=== PATIENT | female | born 1965 | race Caucasian/White ===

== ENCOUNTER 2025-11-04 12:43 | Outpatient (CLI) | payer OTHER, SELFPAY ==
--- OUTSIDE RECORDS SUMMARY | 2025-09-05 15:30 | XMS_ITS | Encounter Summary ---
Author Organization [facility] [address] [place] [address] Care Team Providers Care General Accounting Clerk Name Role Phone None, Physician Primary Care Provider Unavailabl e Reason for Visit * Reason Comments Urinary Symptoms Urinary frequency, p ain in lower back started 1.5 days ago Encounter Details Date Type Department Care Team (Latest Contact Info) Description 09/05/2025 4:30 PM EDT Office Visit [address] [place] [address] Glendy Curran, TRUCK PACKER [address] [facility] [address] [facility] [place] [address] Leukocytes in urine (Primary Dx); Urinary frequency Social History Tobacco Use Types Packs/Day Years Used Date Smoking Tobacco: Never Smokeless Tobacco: Never Tobacco Cessation:Counseling Given: Not Answered Alcohol Use Standard Drinks/Week Comments No 0 (1 standard drink = 0.6 oz pur e alcohol) Comments No Sex and Gender Information Value Date Recorded Sex Assigned at Not on file Legal Sex Female 4:20 PM EST Gender Identity Not on file Sexual Orientation Not on file Occupation Industry Job Start Date Job End Date Teacher Not on file Not on file Not on file documented as of this encounter Last Filed Vital Signs Vital Sign Reading Time Taken Comments Blood Pressure 114/62 09/05/2025 4:37 PM EDT Pulse 74 09/05/2025 4:37 PM EDT Temperature 36.8 C (98.3 F) 09/05/2025 4:37 PM EDT Respiratory Rate 20 09/05/2025 4:37 PM EDT Oxygen Saturation 97% 09/05/2025 4:37 PM EDT Inhaled Oxygen Concentration - - Weight 81.8 kg (180 lb 5.4 oz) 09/05/2025 4:37 P M EDT Height 172.7 cm (5' 8 ) 09/05/2025 4:37 PM EDT Body Mass Index 27.42 09/05/2025 4:37 PM EDT documented in this encounter Functional Status * Are You Deaf or do You Have Serious Difficulty Hearing? Answer Date of Assessment Author No 07/12/2018 6:21 AM EDT Khris Ma RN * Patient's Vision Adequate to Safely Complete Daily Activities Answer Date of Assessment Author Yes 07/12/2018 6:21 AM EDKhris Kolb RN * Do You Have Serious Difficulty Walking or Climbing Stairs? Answer Date of Assessment Author Yes 07/12/2018 6:21 AM Khris Rolon RN * Do You Have Difficulty Dressing or Bathing? Answer Date of Assessment Author No 07/12/2018 6:21 AM Khris Rolon RN * Because of a Physical, Mental, or Emotional Condition, Do You Have Serious Difficulty Concentrating, Remembering or Making a Decision? Answer Date of Assessment Author No 07/12/2018 6:21 AM Khris Rolon RN documented as of this encounter Mental Status * Because of a Physical, Mental or Emotional Problem, Do You Have Difficulty Doing Errands Alone Suchas Visiting a Doctor's Office or Shopping? Answer Entry Date Author Yes 07/12/2018 6:21 AM Khris Rolon RN documented in this encounter Patient Instructions * Patient Instructions* Glendy Curran APRN - 09/05/2025 4:59 PM EDT Treating patient today with macrobid, take like prescribed. Will contact urine culture. Follow up with PCP. ER if symptoms worsen documented in this encounter Progress Notes * Glendy Curran APRN - 09/05/2025 4:59 PM EDT Patient Identification: Name: Naila Patel Age: 60 yr/o Gender: female : 1965 PCP: None, Physician Chief Complaint: Naila Patel is presenting today for Urinary Symptoms (Urinary frequency, pain in lower back started 1.5 days ago) . History of Present Illness: Patient presents today with symptoms that started roughly 2 days ago. She is having frequency, urgency, pressure of the bladder, sensation that she has not emptied her bladder and low back pain. No fevers. Not taking any medications to treat. Also does not have any burning at this time. History, Medications, Allergies, and Review of Symptoms: Past Medical History: Past Medical History[1] Past Surgical History: Past Surgical History[2] Current Medications: Outpatient Medications as of 09/05/2025 Medication Sig Dispense Refill albuterol HFA (PROVENTIL HFA) 108 (90 Base) MCG/ACT inhaler Inhale 2 puffs into the lungs every 4 (four) hours as needed for Wheezing or Shortness of Air. 6.7 g 0 budesonide-formoterol (SYMBICORT) 160-4.5 MCG/ACT inhaler Inhale 2 puffs into the lungs 2 (two) times daily. (Patient not taking: Reported on 09/05/2025) 1 each 3 esomeprazole (NEXIUM) 40 MG capsule Take 1 capsule by mouth every morning before breakfast. 90 capsule 3 ferrous sulfate 325 (65 FE) MG tablet Take 1 tablet by mouth daily. 30 tablet 2 Allergies: Allergies as of 09/05/2025 Review status set to Review Complete by Glendy Curran APRN on 09/05/2025 No Known Allergies Family Medical History: History - Family[3] Social History: Social History[4] E-cigarette/Vaping Use: Never User Review of Symptoms: Review of Systems Genitourinary: Positive for decreased urine volume, frequency and urgency. Negative for dysuria. Physical Exam: BP 114/62 (BP Location: Left arm, Orthostatic Position: Sitting, Amb BP Cuff Size: 11 - Adult) Pulse 74 Temp 98.3 ??F (36.8 ??C) (Oral) Resp 20 Ht 5' 8 (1.727 m) Wt 180 lb 5.4 oz (81.8 kg) LMP 09/30/2013 SpO2 97% BMI 27.42 kg/m?? Physical Exam Vitals and nursing note reviewed. Constitutional: General: She is not in acute distress. Appearance: Normal appearance. She is not ill-appearing, toxic-appearing or diaphoretic. Cardiovascular: Rate and Rhythm: Normal rate and regular rhythm. Pulmonary: Effort: Pulmonary effort is normal. Abdominal: Tenderness: There is no right CVA tenderness or left CVA tenderness. Neurological: Mental Status: She is alert. Psychiatric: Mood and Affect: Mood normal. Behavior: Behavior normal. Thought Content: Thought content normal. Judgment: Judgment normal. Assessment/Plan: Diagnoses and orders/medications from this encounter 1. Leukocytes in urine nitrofurantoin, macrocrystal-monohydrate, (MACROBID) 100 MG capsule Culture,Urine 2. Urinary frequency POCT Urinalysis W/O Micro nitrofurantoin, macrocrystal-monohydrate, (MACROBID) 100 MG capsule Culture,Urine Encounter Medications Signed Prescriptions Disp Refills nitrofurantoin, macrocrystal-monohydrate, (MACROBID) 100 MG capsule 14 capsule 0 Sig: Take 1 capsule by mouth 2 (two) times daily for 7 days. Results this visit (if any) Results for orders placed or performed in visit on 09/05/25 POCT Urinalysis W/O Micro Result Value Ref Range Color, UA Yellow Appearance-BF Clear Clear, Slightly Cloudy Spec Grav, UA 1.015 1.000 - 1.030 pH-Urine Dipstick 5 5 - 8 Leukocyte Esterase-UA 25 Sagrario/ul (A) Negative Nitrite-Urine Negative Negative PROTEIN-POCT Negative Negative, Trace GLUCOSE-POCT Normal Normal KETONES-POCT Negative Negative Urobilinogen-UA Normal Normal mg/dL BILIRUBIN-POCT Negative Negative Blood-POCT 50 Ze/uL (A) Negative QC Urine Strip Acceptable Acceptable Lot Number Urine Strip [id number] Exp Date Urine Strip [id number] Comment Urine Strip Follow-up (if any) No follow-ups on file. Medical Decision Making Treating patient today with macrobid, take like prescribed. Will contact urine culture. Follow up with PCP. ER if symptoms worsen [1] Past Medical History: Diagnosis Date Asthma Eczema no problem at present GERD (gastroesophageal reflux disease) Metastatic colon cancer in female Nov 2018 last chemo PONV (postoperative nausea and vomiting) Poor venous access [2] Past Surgical History: Procedure Laterality Date COLON SURGERY 04/17/2018 COLON RESECTION and liver biopsy for colon cancer COLONOSCOPY N/A 09/30/2024 Re-scope 5 years-Dr. Gibbons HIATAL HERNIA REPAIR TONSILLECTOMY [3] Family History Problem Relation Name Age of Onset Lung cancer Mother smoker Liver cancer Father 70 cholangiocarcinoma Colon cancer Paternal Grandfather 70 [4] Social History Tobacco Use Smoking status: Never Smokeless tobacco: Never Vaping Use Vaping status: Never Used Substance Use Topics Alcohol use: No Drug use: No documented in this encounter Plan of Treatment Upcoming Encounters Date Type Department Care Team (Late st Contact Info) Description 12/25/2025 11:00 AM EST [facility] Visit [facility] [address] [facility] [address] [place] [address] Alyssa Bullard MD [address] [facility] [address] [place] [address] 01/05/2026 2:45 PM EST Lab Visit [facility] [address] [place] [address] 01/05/2026 3:00 PM EST Office Visit [facility] [address] [place] [address] Jennifer Hadley MD [address] [address] 09/11/2026 1:30 PM EDT Office Visit [facility] [address] [facility] [address] [place] [address] Hallie Fiore APRN [address] [facility] [address] [place] [address] documented as of this encounter Procedures Procedure Name Priority Date/Time Associated Diagnosis Comments CULTURE, URINE Routine 09/05/2025 5:49 PM EDT Urinary frequency Leukocytes in urine POCT URINALYSIS W/O MICRO Routine 09/05/2025 4:47 PM EDT Urinary frequency documented in this encounter Results * (ABNORMAL) Culture,Urine (09/05/2025 5:49 PM EDT) Culture 10,000 to 50,000 CFU/mL Viridans Streptococcus group(A) LAB DEVICE: [facility] 09/07/2025 12:14 PM EDT [facility] Comment: Lactobacillus, most corynebacteria, and viridans streptococci are extremely rare causes of urinary tract infection. Their presence in urine specimens typically indicates mucosal contamination. If symptoms persist and organism is isolated from repeated cultures, contact Microbiology for further workup. Colonization of the urinary tract without infection is common. Treatment is discouraged unless the patient is symptomatic, , or undergoing an invasive urologic procedure. Urine MID-STREAM URINE SPECIMEN / Unknown Non-blood Collection / Unknown 09/05/2025 5:49 PM EDT 09/05/2025 5:49 PM EDT us Glendy Curran APRN MICROBIOLOGY - GENERAL ORD ERABLES Final Result [facility] [address] [facility] [address] [place] [address] * (ABNORMAL) POCT Urinalysis W/O Micro (09/05/2025 4:47 PM EDT) Color, UA Yellow [facility] ICC/HAND PACKAGER Appearance-BF Clear Clear, Slightly Cloudy [facility] ICC/HAND PACKAGER Spec Grav, UA 1.015 1.000 - 1.030 [facility] ICC/HAND PACKAGER pH-Urine Dipstick 5 5 - 8 [facility] ICC/HAND PACKAGER Leukocyte Esterase-UA 25 Sagrario/ul(A) Negative [facility] ICC/HAND PACKAGER Nitrite-Urine Negative Negative [facility] ICC/HAND PACKAGER PROTEIN-POCT Negative Negative, Trace [facility] ICC/HAND PACKAGER GLUCOSE-POCT Normal Normal [facility] [place] ICC/HAND PACKAGER KETONES-POCT Negative Negative [facility] ICC/HAND PACKAGER Urobilinogen- UA Normal Normal mg/dL [facility] ICC/HAND PACKAGER BILIRUBIN-POC T Negative Negative [facility] ICC/HAND PACKAGER Blood-POCT 50 Ze/uL(A) Negative [facility] ICC/HAND PACKAGER QC Urine Strip Acceptable Acceptable [facility] ICC/HAND PACKAGER Lot Number Urine Strip [id number] [facility] ICC/HAND PACKAGER Exp Date Urine Strip [id number] [facility] ICC/HAND PACKAGER Comment Urine Strip [facility] ICC/HAND PACKAGER Urine MID-STREAM URINE SPECIMEN / Unknown 09/05/2025 4:47 PM EDT us Glendy Curran TRUCK PACKER POINT OF CARE TEST ORDERAB LES Final Result [facility] ICC/HAND PACKAGER [address] [place] [id number] documented in this encounter Visit Diagnoses Diagnosis Leukocytes in urine- Primary Other nonspecific finding on examination of urine Urinary frequency documented in this encounter Care Teams General Accounting Clerk Relationship Specialty Start Date End Date None, Physician PCP - General 09/04/19 09/07/25 documented as of this encounter
--- OUTSIDE RECORDS SUMMARY | 2025-09-08 12:30 | XMS_ITS | Encounter Summary ---
Author Organization [address] [address] Care Team Providers Care [employer] Name Role Phone Hallie Fiore APRN Primary Care Provider [phone] Reason for Referral * Mammography (Routine) - Authorized Specialty Diagnoses / Procedures Referred By Contac t Referred To Contact Radiology Diagnoses Encounter for screening mammogram for breast cancer Procedures Mammogram Mann Screening Bilateral Hallie Fiore APRN [address] [address] Phone: tel: fax: [address] [address] Phone: tel: Referral ID Status Reason Start Date Expiration Date V isits Requested Visits Authorized [id number] Authorized 09/08/2025 10/09/2026 1 1 * Consultation (Routine) - Authorized Specialty Diagnoses / Procedures Referred By Contac t Referred To Contact Gynecology Diagnoses Encounter for screening for cervical cancer Hallie Fiore APRN [address] [address] Phone: tel: fax: Referral ID Status Reason Start Date Expiration Date V isits Requested Visits Authorized [id number] Authorized 09/08/2025 10/09/2026 1 1 Scheduling Instructions Please call [phone] Option 3 if you have any questions or scheduling needs. Reason for Visit * Reason Comments New Patient Establish Care Encounter Details Date Type Department Care Team (Doug st Contact Info) Description 09/08/2025 1:30 PM EDT Office Visit [facility] [address] [address] Hallie Fiore APRN [address] [address] Annual physical exam (Primary Dx); Screening for endocrine, nutritional, metabolic and immunity disorder; Encounter for screening for diseases of the blood and blood-forming organs and certain disorders involving the immune mechanism; Screening for depression; Encounter for screening examination for other mental health and behavioral disorders; Personal history of colon cancer; UTI symptoms; Hematuria, unspecified type; Encounter for screening for cervical cancer; Encounter for screening mammogram for breast cancer Social History Tobacco Use Types Packs/Day Years [...] Sign Reading Time Taken Comments Blood Pressure 110/66 09/08/2025 1:20 PM EDT Pulse 56 09/08/2025 1:20 PM EDT Temperature 36.7 C (98.1 F) 09/08/2025 1:20 PM EDT Respiratory Rate - - Oxygen Saturation 100% 09/08/2025 1:20 PM EDT Inhaled Oxygen Concentration - - Weight 80.7 kg (177 lb 14.6 oz) 09/08/2025 1:20 PM EDT Height 172.7 cm (5' 8 ) 09/08/2025 1:20 PM EDT Body Mass Index 27.05 09/08/2025 1:20 PM EDT documented in this encounter Functional Status * Over the past 2 weeks, how often have you been bothered by any of the following problems? (0 = Not at all; 1 = Several days; 2 = More than half the days; 3 = Nearly every day) Question Answer Date of Assessment Author Little interest or pleasure in doing things Not at all 09/08/2025 1:00 PM CECIT Hallie Fiore APRN Feeling down, depressed, or hopeless Not at all 09/08/2025 1:00 PM EDT Hallie Fiore APRN Depression Risk 0 09/08/2025 1:00 PM EDT Hallie Booker APRN * Over the past 2 weeks, how often have you been bothered by any of the following problems? Question Answer Date of Assessment Author Trouble falling or staying asleep, or sleeping too much Nearly every day 09/08/2025 1:00 PM CECIT Hallie Fiore APRN Feeling tired or having little energy Nearly every day 09/08/2025 1:00 PM Hallie Akbar APRN Poor appetite or overeating Not at all 09/08/2025 1:00 PM CECIT Hallie Fiore APRN Feeling bad about yourself - or that you are a failure or have let yourself or your family down Not at all 09/08/2025 1:00 PM CECIT Hallie Fiore APRN Trouble concentrating on things, such as reading the newspaper or watching television Not at all 09/08/2025 1:00 PM CECIT Hallie Fiore APRN Moving or speaking so slowly that other people could have noticed? Or the opposite - being so fidgety or restless that you have been moving around a lot more than usual. Not at all 09/08/2025 1:00 PM Hallie Akbar APRN Thoughts that you would be better off or hurting yourself in some way Not at all 09/08/2025 1:00 PM CECIT Hallie Fiore APRN Depression Risk Score 6 09/08/2025 1:00 PM Hallie Akabr APRN * Are You Deaf or do You Have Serious Difficulty Hearing? Answer Date of Assessment Author No 07/12/2018 6:21 AM Khris Rolon RN * Patient's Vision Adequate to Safely Complete Daily Activities Answer Date of Assessment Author Yes 07/12/2018 6:21 AM Khris Rolon RN * Do You Have Serious Difficulty [...] 07/12/2018 6:21 AM Khris Rolon RN * Over the last 2 weeks, how often have you been bothered by any of the following problems? Question Answer Date of Assessment Author Feeling nervous, anxious, or on edge 0 09/08/2025 1:00 PM Hallie Akbar APRN Not being able to stop or control worrying 0 09/08/2025 1:00 PM Hallie Akbar APRN Worrying too much about different things 1 09/08/2025 1:00 PM Hallie Akbar APRN Trouble relaxing 0 09/08/2025 1:00 PM Hallie Lopez APRN Being so restless that it is hard to sit still 0 09/08/2025 1:00 PM Hallie Akbar APRN Becoming easily annoyed or irritable 1 09/08/2025 1:00 PM Hallie Akbar APRN Feeling afraid as if somethi ng awful might happen 0 09/08/2025 1:00 PM Hallie Akbar APRN LINCOLN-7 Total Score 2 09/08/2025 1:00 PM Hallie Akbar APRN * If you checked off any problems on this questionnaire, Question Answer Date of Assessment Author How difficult have these problems made it for you to do your work, take care of things at home, or get along with other people? Not difficult at all 09/08/2025 1:00 PM EDT FioreHallie koenig SHERIE Ayala documented as of this encounter Mental Status * Because of a Physical, Mental or Emotional Problem, Do You Have Difficulty Doing Errands Alone Suchas Visiting a Doctor's Office or Shopping? Answer Entry Date Author Yes 07/12/2018 6:21 AM EDT Khris Ma RN documented in this encounter Patient Instructions * Patient Instructions* Hallie Fiore SHERIE Ayala - 09/08/2025 6:50 AM EDT Welcome to [facility]. My name is Hallie Fiore, and I will be your new provider here at the [place] [address] office. Any new or ongoing medical problems can be seen by me. Iwould like to see you at least once a year for a checkup if nothing arises throughout the year. I will be here on Mondays, Wednesdays, and Fridays. Please note any medication refills need to be given at least a 48 hours window of return. ATTENTION: If you are on any of the following medications (blood pressure medications, diabetes medications, cholesterol medications, depression / anxiety medications), you must be seen every 3-6 months or as advised at follow up, for ongoing monitoring and further medication refills. It is your responsibility to schedule (and remember) your appointment. Please plan to arrive 15 minutes prior to your appointment time. MyChart Rules: MyChart is a useful part of our patient care, and is a great way for us to communicate lab results,and for you to request refills. Not all medical questions are appropriate to MyChart. New medical issues that require taking a history, performing an exam, getting labs or studies, or researching medical questions need to be addressed in the office. Examples of medical issues that are APPROPRIATE to MyChart: - Follow-up on problems we've already addressed in a visit, like home testing results; - Questions that can be answered with a simple yes or no Communication that is NOT appropriate for [facility]: - [employer] is NOT for new problems, serious problems or urgent problems. [employer] messages are not instantaneous. We will check our messages each weekday. We strive for a 48 hour turn-around on email. Urgent matters should be addressed by phone, in the office, or at the ER. - [facility] is NOT for private issues. Messages are received first by our office staff, and become part of the permanent medical record. We appreciate your respect for the limitations and boundaries of [employer]. The following things you are due for, if you would like to review and discuss at your next visit let me know. Any vaccines you are due for do not require a visit with me, you just need to call ([phone]) and make an immunization only visit. Health Maintenance Due Topic Tdap/Td Vaccine >11 yo (1 - Tdap) Shingles (Shingrix) (1 of 2) Hepatitis B (HepB) Vaccine (1 of 3 - 19+ 3-dose series) Hepatitis A (HepA) Vaccine (1 of 2 - Risk 2-dose series) Cervical Cancer Screening RSV 50+ and (1 - Risk 50-74 years 1-dose series) Breast Cancer Screening Annual [facility] Screening Influenza Vaccine (1) Annual Wellness Plan: - Return to our office in a year to review your health. We need to see you annually to prescribe any medications. If you have other medical problems you may need to be seen sooner. - Alcohol: consider holding Alcohol intake to less than 10 drinks a week. A drink is one 12 oz beer, a 4 oz glass of wine, or 1.5 oz of liquor. Some patients should consider avoiding Alcohol entirely. - Dental checkups every 6-12 months are important. Haiku and floss your teeth at least twice daily. - Exercise regularly for your heart: 150 minutes of moderate exercise like brisk walking, or 75 minutes of vigorous exercise. 30 minutes a day, 5 times a week is an easy goal to remember. You can break this into shorter sessions, like 10 minutes 3 times a day. Also consider weight training a coupleof times a week. - Lose Weight: even 5 pounds weight loss can improve your health. - Nutrition: Eat healthy food, less of it, mostly vegetables . Avoid sweetened drinks and concentrated sugars. Limit white foods like rice, bread and pasta. - Pain medications sold [id number] like ibuprofen (Motrin/Advil) and naproxen (Aleve) should be limited, they can cause bleeding and kidney damage. - Pain & Cold medications sold dpzz-jwc-ismebqy that contain acetaminophen (Tylenol) can cause serious harm if not taken as directed, particulalry to your liver. - Safety Belts used regularly save lives. - Sex: condoms used effectively prevent and sexually transmitted disease. - Screening: Cholesterol screening should begin at age 35 for healthy men, and 45 for healthy women. - Vaccinations: Flu shots annually protect you AND our community. - Vaccinations: Pneumonia shots usually happen at age 65. Smokers, diabetics, and people with heart, lung or immune disease may need them earlier. - Vaccinations: Shingles immunization usually happens at age 50. You may want to check your insurance coverage. - Vaccinations: Tetanus shots are needed every 10 years, and once as an adult you should get a Tetanus shot that boosts Pertussis ( whooping cough ). CANCER SCREENINGS Cancer screening tests are too important to ignore. Delays of just a few months in detecting various forms of cancer can make treatment more difficult and reduce chances of survival. Here's a guide to cancer screening tests and who should get checked when. Breast cancer: Mammogram -- an X-ray of the breast -- is often the most effective way of spotting breast cancer early when treatment can be more than 90% successful. Mammograms expose you to low-doseradiation, and for most people in the following age ranges, the benefits of regular mammograms outweigh the risks of radiation exposure. Women age 45 to 54 and at average risk: Annually, according to the [employer]. Women age 50 to 74 and at average risk: Every two years, according to the U.S. Preventive Services Task Force (USPSTF). Those at high risk of breast cancer because of family history or their own medical history may start screening before age 40 in consultation with their health care provider. Cervical cancer: Pap smears look for precancerous cells that can develop into cancer without treatment. The HPV test looks for the human papillomavirus that can trigger the cells to develop into cancer. Age 25: Pap smears should start at age 25. A normal test may allow you to wait five years for your next test. Age 25 to 65: Talk to your health care provider about what's right for you. A normal Pap smear may allow you to wait three years before another. A normal HPV test may allow you to wait five years forthe next one. If both tests conducted at the same time are normal, you may be able to wait five years to do it again. Over age 65: Your provider may advise that you don't need screening anymore if you've had normal screenings for several years or if you've had your cervix removed as part of hysterectomy, for instance. Colon cancer: Colon cancer typically starts with precancerous polyps in the colon or rectum. Once detected, the polyps can be removed before they turn into cancer. A colonoscopy is very thorough and allows the physician to remove any polyps or other suspicious tissue for testing. Stool tests collected at home can be almost as accurate as a colonoscopy, but don't allow for immediate treatment. Age 45 to 75 and at average risk for colon cancer: People in this age group should get a colonoscopy every 10 years OR a cologaurd if there is no family history of colon cancer. Age 76 to 85: Talk with your health care provider about your overall health and prior screening history. Current evidence shows there is little benefit in screening everyone in this age group. Lung cancer: Low-dose computed tomography (low-dose CT scan) is used to screen for lung cancer. Thetest is quick and painless, but carries risk from low-level radiation exposure. Age 50 to 80 with a 20 pack-year smoking history and a current smoker or quit within the past 15 years (A pack year is measured by multiplying the number of packs smoked each day by the number of years. One pack per day for 20 years would be 20 pack years and two packs per day for 20 years would be40 pack years.) Other: Screening for ovarian, pancreatic, prostate, testicular and thyroid cancers has not been shown be effective at reducing , according to the USPSTF. Bone Density Screening: Begins at age 65. Depending on results, it will guide when repeat scan is completed. If any of these screening apply to you, lets have a discussion about it! Thank you for your visit to our [facility] [address]. It was a pleasure to be a part of your care. documented in this encounter Progress Notes * Hallie Fiore APRN - 09/08/2025 1:30 PM EDT Images from the original note were not included. [facility] [address], [place] [address] Naila Patel is a 60 yr/o female here today for: Chief Complaint Patient presents with New Patient Establish Care HPI: She is seen today alone. Information obtained from patient as historian. Previous PCP: None Treatment Team Members: Patient Care Team: Hallie Fiore APRN as PCP - General (Nurse Practitioner Family) Annual Adult Wellness Visit: Medical History: Past Medical, Surgical and Social Hx, Family Hx, Medications & Allergies were reviewed and updated as appropriate. Care Teams: Care team reviewed and updated in medical record under Care Team. Health Screening: Age-appropriate Screening & Interventions recommended by USPSTF were reviewedwith the patient, and Health Maintenance was updated in [facility]. Medical Problems: For details, see Problem List, Medications, and Orders sections in Epic, and AVS related to this [id number]. LIFESTYLE - Body mass index is 27.05 kg/m??. Diet: poor diet - working 3 jobs - fast food . Exercise/Physical Activity: exercising 3 days/week doing walking. Sleep: has no issues with sleeping and frequent bathroom. Seat belt: Pt does wear a seat belt. SOCIAL: Marital Status: She is . Sexual Activity: patient understands the importance of safe sexual practices. STD Testing: She does not request STD testing. Children: 1 child. 0 son. 1 daughter - Radha Patel 19yo. Work: She works as a teacher at [employer]. Fun: Patient likes to read & watch sports. SUBSTANCE USE - Substance use reviewed with patient, with cessation / treatment recommendations as applicable. She reports that she has never smoked. She has never used smokeless tobacco. She reports that she does not drink alcohol and does not use drugs. Tobacco Use: Social History updated in medical record. Alcohol Use: Social history updated in medical record. MENTAL HEALTH PHQ-9: 05/09 (Score 5 - 9 = Mild depression). LINCOLN-7: 01/03 (Score 0 - 4 = No / minimal anxiety). In the past the patient has been on no Tx. Denies SI / HI. Counseled on available treatment options (medication, therapy) when indicated. HEALTH MAINTENANCE - Health Maintenance reviewed with patient. Health Maintenance Due Topic Date Due Tdap/Td Vaccine >11 yo (1 - Tdap) Never done Shingles (Shingrix) (1 of 2) Never done Hepatitis B (HepB) Vaccine (1 of 3 - 19+ 3-dose series) Never done Hepatitis A (HepA) Vaccine (1 of 2 - Risk 2-dose series) Never done Cervical Cancer Screening Never done RSV 50+ and (1 - Risk 50-74 years 1-dose series) Never done Breast Cancer Screening 09/17/2022 Annual SDOH Screening Never done Most Recent Labs: Lipid Panel No results found for: TRIGLYCDES , CHOL , HDL , LDLCALC , LDLCHOLM Liver Enzymes Lab Results Component Value Date ALT 12 09/26/2022 AST 15 09/26/2022 BILITOTAL 0.5 09/26/2022 Kidney Function Lab Results Component Value Date CREATININE 0.87 09/26/2022 EGFR >60 09/26/2022 A1C No results found for: [id number] TSH Lab Results Component Value Date TSH 1.560 03/04/2019 FREET4 0.87 03/04/2019 CBC Lab Results Component Value Date HGB 12.1 09/26/2022 HGB 11.4 (L) 03/28/2022 HGB 12.1 09/27/2021 Lab Results Component Value Date IRON 72 03/17/2020 TIBC 382 03/17/2020 FERRITIN 12.0 03/17/2020 Vitamin D No results found for: [id number] OTHER ISSUES Colon cancer metastasized to liver: Dx 04/17/18, s/p cholectomy & chemo, neuropathy improved. Followed by oncology? previously, planned for [facility] 2023, monitoring labs Q6mo. UTI: Follow-up of acute condition. Onset: 5 days ago. Pattern is no change. Symptoms: frequency, urgency, and low back pain. Fever? No. New flank pain? No. Previous eval: 09/05/25 @ [facility]: c/o frequency, urgency, suprapubic pressure x1.5d. UA leuk & blood. Was Rx Macrobid 100 mg BID x7d. Culture possibly contaminated. Tx: took 3d Macrobid & tolerating w/o any AEs / issues. She has no known allergies. Followed by urology / urogynecology? no. Last A1C: No results found for: [id number] Last KFT: Lab Results Component Value Date EGFR >60 09/26/2022 EGFR >60 03/28/2022 CREATININE 0.87 09/26/2022 CREATININE 0.77 03/28/2022 BUN 15 09/26/2022 BUN 12 03/28/2022 Urinalysis results: Lab Results Component Value Date APPEARANCEBF Slightly Cloudy 09/08/2025 LEUKOCYTESUR Negative 09/08/2025 NITRITEUA Negative 09/08/2025 NPSPROTPOCT Negative 09/08/2025 NPSGLUCPOCT Normal 09/08/2025 NPSKETPOCT Negative 09/08/2025 NPSBLOODPOCT 50 Ze/uL (A) 09/08/2025 NPSBILIPOCT Negative 09/08/2025 Last urine cultures: Lab Results Component Value Date CULTURE (A) 09/05/2025 10,000 to 50,000 CFU/mL Viridans Streptococcus group CULT <10,000 CFU/ML Mixed nader isolated 01/19/2022 CULT Final no growth 04/27/2020 CULT No Growth 04/27/2020 CULT No Growth 04/27/2020 CULT No growth 08/29/2018 CULT No Growth 08/29/2018 CULT No Growth 08/29/2018 Review of Systems Constitutional: Negative for fatigue, fever and unexpected weight change. HENT: Negative for ear pain, hearing loss, tinnitus and trouble swallowing. Eyes: Negative for visual disturbance. Respiratory: Negative for chest tightness and shortness of breath. Cardiovascular: Negative for chest pain, palpitations and leg swelling. Gastrointestinal: Negative for abdominal distention, abdominal pain and blood in stool. Endocrine: Negative for cold intolerance, heat intolerance, polydipsia, polyphagia and polyuria. Genitourinary: Positive for difficulty urinating, frequency and urgency. Negative for hematuria. Musculoskeletal: Negative for arthralgias, myalgias, neck pain and neck stiffness. Skin: Negative for rash and wound. Neurological: Negative for dizziness, weakness, light-headedness and numbness. Psychiatric/Behavioral: Negative for depression, hallucinations and suicidal ideas. The patient is not nervous/anxious. All other systems reviewed and are negative. OBJECTIVE BP 110/66 Pulse (!) 56 Temp 98.1 ??F (36.7 ??C) (Oral) Ht 5' 8 (172.7 cm) Wt 80.7 kg (177 lb 14.6 oz) LMP 09/30/2013 SpO2 100% BMI 27.05 kg/m?? Physical Exam Vitals reviewed. Constitutional: General: She is not in acute distress. Appearance: Normal appearance. She is well-developed. She is not ill-appearing or toxic-appearing. HENT: Head: Normocephalic. Right Ear: Hearing, tympanic membrane, ear canal and external ear normal. Left Ear: Hearing, tympanic membrane, ear canal and external ear normal. Nose: Nose normal. Mouth/Throat: Mouth: Mucous membranes are moist. Pharynx: Oropharynx is clear. Eyes: Extraocular Movements: Extraocular movements intact. Conjunctiva/sclera: Conjunctivae normal. Pupils: Pupils are equal, round, and reactive to light. Neck: Vascular: No carotid bruit. Cardiovascular: Rate and Rhythm: Normal rate and regular rhythm. Pulmonary: Effort: Pulmonary effort is normal. No respiratory distress. Breath sounds: Normal breath sounds. Abdominal: General: Abdomen is flat. Bowel sounds are normal. There is no distension. Palpations: Abdomen is soft. There is no hepatomegaly, splenomegaly or mass. Tenderness: There is no abdominal tenderness. There is no right CVA tenderness or left CVA tenderness. Musculoskeletal: General: Tenderness (mild tenderness bilat lumbar / sacral muscles) present. Normal range of motion. Cervical back: Normal range of motion and neck supple. No rigidity. No muscular tenderness. Skin: General: Skin is warm and dry. Coloration: Skin is not cyanotic. Findings: No lesion or rash. Nails: There is no clubbing. Neurological: General: No focal deficit present. Mental Status: She is alert and oriented to person, place, and time. Cranial Nerves: Cranial nerves 2-12 are intact. Psychiatric: Mood and Affect: Mood normal. Behavior: Behavior normal. Thought Content: Thought content normal. Judgment: Judgment normal. No images are attached to the encounter. ASSESSMENT & PLAN Naila was seen today for new patient and establish care. Diagnoses and all orders for this visit: Annual physical exam Assessment & Plan: Labs ordered today (if not obtained recently). Most recent lab work reviewed (if available). HealthMaintenance reviewed. Tobacco Use reviewed. Anticipatory guidance, risk factor reduction and counseling placed in AVS. Yearly blood work to monitor health status, including kidney, liver, and electrolytes, cholesterol,and A1c. Return in about 1 year for Annual physical & fasting labs. Orders: - Comprehensive Metabolic Panel (CMP); Future Screening for endocrine, nutritional, metabolic and immunity disorder - Lipid Panel (REVIEW PROCESS INSTRUCTIONS AT ORDERING AND COLLECTING); Future - Hemoglobin A1C; Future - Comprehensive Metabolic Panel (CMP); Future Encounter for screening for diseases of the blood and blood-forming organs and certain disorders involving the immune mechanism Screening for depression Encounter for screening examination for other mental health and behavioral disorders Personal history of colon cancer Assessment & Plan: Chronic and controlled / stable (at goal) Tx: Continue F/U w/ oncology for monitoring & management. Continue to monitor symptoms Follow up routinely w/ oncology. UTI symptoms Assessment & Plan: Acute, unstable, with systemic symptoms, and Undiagnosed new problem with uncertain prognosis. Differential diagnoses include but not limited to infectious, gynecologic, functional, and oncologic etiology. Additional work-up planned. UA shows 50 blood. Urine sent for culture. If culture abnormal, will send antibiotic. If culture normal & symptoms persist, will refer to urology for further eval. Provided pt education handout with recommendations to drink water 8 glasses/day, urinate at least every 4 hours, urinate after sexual activity, wipe [id number], bladder training techniques to completely empty bladder when urinating, use OTC phenazopyridine (< 2 days) & heating pad PRN urinary pain, take D-Mannose supplement &/or cranberry juice daily for prophylaxis if recurrent UTIs; avoid bladder irritants (caffeine, alcohol, spicy foods), avoid staying in wet / sweaty clothes for prolonged time, avoid scented hygiene products / detergent, avoid douching / bubble baths / tight-fitting underwear or pants; monitor symptoms; take entire course of antibiotic if prescribed to prev ent bacterial resistance.. Seek medical assistance if new symptoms, fever > 100.4 F, chills, CP, SOB, new confusion, significant pain, significant nausea / vomiting, new back pain, hematuria, or other concerning signs / symptoms. Follow up PRN. Orders: - POCT Urinalysis W/O Micro - Urinalysis; Future - Culture,Urine; Future - CBC w/Diff; Future Hematuria, unspecified type - Urinalysis; Future - CBC w/Diff; Future Encounter for screening for cervical cancer - Ambulatory referral to Gynecology Encounter for screening mammogram for breast cancer - Mammogram Mann Screening Bilateral; Future This visit serves as a continuing focal point in longitudinal care services within the medical group which are a part of ongoing care related to Ms. Patel's single, serious or complex condition(s). Ms. Patel was seen and examined. Work by the provider also included review &/or ordering of lab tests, discussion with other providers, independent review of data, obtaining / review / summation of old records, review / summation of other providers' records / recommendations / conclusions, and/or other review. Treatment plan outlined above discussed with Ms. Patel and/or family, with all questions answered totheir satisfaction. Additional education provided within AVS and provided to patient. Ms. Patel verbalized agreement and understanding of all care discussed, and had no additional questions / concerns. Advised patient to return to clinic / ED if symptoms are severe, worsen or do not improve. FOLLOW UP: Return in about 1 year (around 09/08/2026) for Annual physical (fasting labs). Annual Wellness Plan: Copied into AVS - Return to our office in a year to review your health. We need to see you annually to prescribe any medications. If you have other medical problems you may need to be seen sooner. - Alcohol: consider holding Alcohol intake to less than 10 drinks a week. A drink is one 12 oz beer, a 4 oz glass of wine, or 1.5 oz of liquor. Some patients should consider avoiding Alcohol entirely. - Dental checkups every 6-12 months are important. Haiku and floss your teeth at least twice daily. - Exercise regularly for your heart: 150 minutes of moderate exercise like brisk walking, or 75 minutes of vigorous exercise. 30 minutes a day, 5 times a week is an easy goal to remember. You can break this into shorter sessions, like 10 minutes 3 times a day. Also consider weight training a coupleof times a week. - Lose Weight: even 5 pounds weight loss can improve your health. - Nutrition: Eat healthy food, less of it, mostly vegetables . Avoid sweetened drinks and concentrated sugars. Limit white foods like rice, bread and pasta. - Pain medications sold [id number]-[id number] like ibuprofen (Motrin/Advil) and naproxen (Aleve) should be limited, they can cause bleeding and kidney damage. - Pain & Cold medications sold gisf-xqh-gmidxmt that contain acetaminophen (Tylenol) can cause serious harm if not taken as directed, particularly to your liver. - Safety Belts used regularly save lives. - Sex: condoms used effectively prevent and sexually transmitted disease. - Screening: Cholesterol screening should begin at age 35 for healthy men, and 45 for healthy women. - Vaccinations: Flu shots annually protect you AND our community. - Vaccinations: Pneumonia shots usually happen at age 65. Smokers, diabetics, and people with heart, lung or immune disease may need them earlier. - Vaccinations: Shingles immunization usually happens at age 50. You may want to check your insurance coverage. - Vaccinations: Tetanus shots are needed every 10 years, and once as an adult you should get a Tetanus shot that boosts Pertussis ( whooping cough ). Thank you for your visit to our [facility] [address]. It was a pleasure to be a part of your care. Hallie Fiore APRN, SURVEY OPERATIONS DIRECTOR-[facility] [address] Disclaimer: Much of this report is an electronic addiction treatment counselor of spoken languageto printed text using Dragon dictate. As such, the subtleties and finesse of spoken language may permit erroneous or nonsensical words/phrases to be inadvertently transcribed. Although I have reviewed the note for such errors, some may still exist or changes may be made at a later date to rectify these errors. documented in this encounter Miscellaneous Notes * Assessment & Plan Note - Hallie Fiore APRN - 09/08/2025 2:25 PM EDT Associated Problem(s): UTI symptoms Acute, unstable, with systemic symptoms, and Undiagnosed new problem with uncertain prognosis. Differential diagnoses include but not limited to infectious, gynecologic, functional, and oncologic etiology. Additional work-up planned. UA shows 50 blood. Urine sent for culture. If culture abnormal, will send antibiotic. If culture normal & symptoms persist, will refer to urology for further eval. Provided pt education handout with recommendations to drink water 8 glasses/day, urinate at least every 4 hours, urinate after sexual activity, wipe vnnvw-gl-cedt, bladder training techniques to completely empty bladder when urinating, use OTC phenazopyridine (< 2 days) & heating pad PRN urinary pain, take D-Mannose supplement &/or cranberry juice daily for prophylaxis if recurrent UTIs; avoid bladder irritants (caffeine, alcohol, spicy foods), avoid staying in wet / sweaty clothes for prolonged time, avoid scented hygiene products / detergent, avoid douching / bubble baths / tight-fitting underwear or pants; monitor symptoms; take entire course of antibiotic if prescribed to prev ent bacterial resistance.. Seek medical assistance if new symptoms, fever > 100.4 F, chills, CP, SOB, new confusion, significant pain, significant nausea / vomiting, new back pain, hematuria, or other concerning signs / symptoms. Follow up PRN. * Assessment & Plan Note - Hallie Fiore APRN - 09/08/2025 2:23 PM EDT Associated Problem(s): Personal history of colon cancer Chronic and controlled / stable (at goal) Tx: Continue F/U w/ oncology for monitoring & management. Continue to monitor symptoms Follow up routinely w/ oncology. * Assessment & Plan Note - Hallie Fiore APRN - 09/08/2025 2:22 PM EDT Associated Problem(s): Annual physical exam Labs ordered today (if not obtained recently). Most recent lab work reviewed (if available). HealthMaintenance reviewed. Tobacco Use reviewed. Anticipatory guidance, risk factor reduction and counseling placed in AVS. Yearly blood work to monitor health status, including kidney, liver, and electrolytes, cholesterol,and A1c. Return in about 1 year for Annual physical & fasting labs. documented in this encounter Plan of Treatment Upcoming Encounters Date Type Department Care Team (Late st Contact Info) Description 12/25/2025 11:00 AM EST [facility] [address] [facility] [address] [place] [address] Alyssa Bullard MD [address] [facility] [address] [place] [phone] 01/05/2026 2:45 PM EST Lab Visit [facility] [address] [place] [phone] 01/05/2026 3:00 PM EST Office Visit [facility] [address] [place] [phone] Jennifer Hadley MD [address] [id number] 09/11/2026 1:30 PM EDT Office Visit [facility] [address] [facility] [address] [place] [address] Hallie Fiore APRN [address] [facility] [address] [place] [address] Scheduled Orders Name Type Priority Associated Diagnoses Orde r Schedule Lipid Panel (REVIEW PROCESS INSTRUCTIONS AT ORDERING AND COLLECTING) Lab Routine Screening for endocrine, nutritional, metabolic and immunity disorder Expected: 10/24/2025 (Approximate), Expires: 12/09/2025 Hemoglobin A1C Lab Routine Screening for endocrine, nutritional, metabolic and immunity disorder Expected: 10/24/2025 (Approximate), Expires: 12/09/2025 Comprehensive Metabolic Panel (CMP) Lab Routine Annual physical exam Screening for endocrine, nutritional, metabolic and immunity disorder Expected: 10/24/2025 (Approximate), Expires: 12/09/2025 Mammogram Mann Screening Bilateral Imaging Routine Encounter for screening mammogram for breast cancer Expected: 11/07/2025 (Approximate), Expires: 09/08/2026 CBC w/Diff Lab Routine UTI symptoms Hematuria, unspecified type Expected: 10/24/2025 (Approximate), Expires: 12/09/2025 Scheduled Referrals Name Type Priority Associated Diagnoses Order Schedule Ambulatory referral to Gynecology Outpatient Referral Routine Encounter for screening for cervical cancer Ordered: 09/08/2025 documented as of this encounter Procedures Procedure Name Priority Date/Time Associated Diagnosis Comments CULTURE, URINE Routine 09/08/2025 1:43 PM EDT UTI symptoms URINALYSIS Routine 09/08/2025 1:42 PM EDT UTI symptoms Hematuria, unspecified type POCT URINALYSIS W/O MICRO Routine 09/08/2025 1:42 PM EDT UTI symptoms documented in this encounter Results * Culture,Urine (09/08/2025 1:43 PM EDT) Culture No Growth Final. LAB DEVICE: COPAN WASP 09/09/2025 4:21 PM EDT [facility] Urine MID-STREAM URINE SPECIMEN / Unknown Non-blood Collection / Unknown 09/08/2025 1:43 PM EDT 09/08/2025 4:21 PM EDT [facility] Jamie Fiore APRN MICROBIOLOGY - GENERAL ORDE RABLES Final Result [facility] [address] [place] [address] * (ABNORMAL) Urinalysis (09/08/2025 1:42 PM EDT) Color, Urine Light-Yellow 09/08/2025 9:15 PM EDT [facility] Clarity, Urine Clear 09/08/2025 9:15 PM EDT [facility] Specific [place], Urine 1.011 1.005 - 1.030 [arb'U] 09/08/2025 9:15 PM EDT [facility] pH, Urine 6.0 5.0 - 9.0 [pH] 09/08/2025 9:15 PM EDT [facility] Protein, Urine Negative Negative, 10 mg/dL, 15 mg/dL, 20 mg/dL, Trace 09/08/2025 9:15 PM EDT [facility] Glucose, Urine Negative Negative 09/08/2025 9:15 PM EDT [facility] Ketones, Urine Negative Negative 09/08/2025 9:15 PM EDT [facility] Bilirubin, Urine Negative Negative mg/dL 09/08/2025 9:15 PM EDT [facility] Blood, Urine Trace(A) Negative [arb'U] 09/08/2025 9:15 PM EDT [facility] Nitrite, Urine Negative Negative 09/08/2025 9:15 PM EDT [facility] Urobilinogen, Urine Normal Normal 09/08/2025 9:15 PM EDT [facility] Leukocyte Esterase, Urine Negative Negative 09/08/2025 9:15 PM EDT [facility] Reflex Microscopic? 09/08/2025 9:15 PM EDT [facility] Comment:Microscopic performe d Red Blood Cells, Urine 1 0 - 2 [HPF] 09/08/2025 9:15 PM EDT [facility] White Blood Cells, Urine 2 0 - 3 [HPF] 09/08/2025 9:15 PM EDT [facility] Squamous Epithelial Cells, Urine <1 0 - 4 [HPF] 09/08/2025 9:15 PM EDT [facility] Bacteria, Urine None None [HPF] 09/08/2025 9:15 PM EDT [facility] Mucus, Urine Trace(A) None [LPF] 09/08/2025 9:15 PM EDT [facility] Urine MID-STREAM URINE SPECIMEN / Unknown Non-blood Collection / Unknown 09/08/2025 1:42 PM EDT 09/08/2025 4:24 PM EDT [facility] Jamie Fiore GUN PERFORATOR URINE ORDERABLES Final Resu lt [facility] [address] [place] [address] * (ABNORMAL) POCT Urinalysis W/O Micro (09/08/2025 1:42 PM EDT) Color, UA Light Yellow [facility] Appearance-BF Slightly Cloudy Clear, Slightly Cloudy [facility] Spec Grav, UA 1.010 1.000 - 1.030 [facility] pH-Urine Dipstick 5 5 - 8 [facility] Leukocyte Esterase-UA Negative Negative [facility] Nitrite-Urine Negative Negative [facility] PROTEIN-POCT Negative Negative, Trace [facility] GLUCOSE-POCT Normal Normal [facility] KETONES-POCT Negative Negative [facility] Urobilinogen- UA Normal Normal mg/dL [facility] BILIRUBIN-POC T Negative Negative [facility] Blood-POCT 50 Ze/uL(A) Negative [facility] QC Urine Strip Acceptable Acceptable [facility] Lot Number Urine Strip [id number] [facility] Exp Date Urine Strip 10/12/2025 [facility] Comment Urine Strip [facility] Urine MID-STREAM URINE SPECIMEN / Unknown 09/08/2025 1:42 PM EDT [facility] Jamie Macarena GUN PERFORATOR POINT OF CARE TEST ORDERABL ES Final Result [facility] [address] [place] [address], [facility] [phone] documented in this encounter Visit Diagnoses Diagnosis Annual physical exam- Primary Routine general medical examination at a health care facility Screening for endocrine, nutritional, metabolic and immunity disorder Screening for other and unspecified endocrine, nutritional, metabolic, and immunity disorders Encounter for screening for diseases of the blood and blood-forming organs and certain disorders involving the immune mechanism Screening for depression Encounter for screening examination for other mental health and behavioral disorders Personal history of colon cancer Personal history of malignant neoplasm of large intestine UTI symptoms Hematuria, unspecified type Encounter for screening for cervical cancer Encounter for screening mammogram for breast cancer documented in this encounter Care Teams [employer] Relationship Specialty Start Date End Date Hallie Fiore, SHERIE [address] [address] PCP - General Nurse Practitioner Family 09/08/25 documented as of this encounter
--- OUTSIDE RECORDS SUMMARY | 2025-09-11 20:46 | XMS_ITS | Encounter Summary ---
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 Pt states she has seen her PCP and urgent care and was told it wasn't a UTI. Endorses lower back pain and lower abd pain. Denies dysuria but reports pressure in her bladder. Encounter Details Date Type Department Care Team (Late st Contact Info) Description 09/11/2025 9:46 PM EDT - 09/12/2025 2:30 AM EDT Emergency [facility] Emergency Department [address] [place] [address] Alex Malik MD [address] [place] [address] Urinary tract infection with hematuria, site unspecified (Primary Dx); Abdominal pain, unspecified abdominal location Discharge Disposition: Home or Self Care Social History Tobacco Use Types Packs/Day Years Used Date Smoking Tobacco: Never Smokeless Tobacco: Never Alcohol Use Standard Drinks/Week Comments No 0 [...] Sign Reading Time Taken Comments Blood Pressure 126/68 09/12/2025 2:29 AM EDT Pulse 65 09/12/2025 2:29 AM EDT Temperature 36.5 C (97.7 F) 09/11/2025 9:39 PM EDT Respiratory Rate 16 09/12/2025 2:29 AM EDT Oxygen Saturation 100% 09/12/2025 2:29 AM EDT Inhaled Oxygen Concentration - - Weight 80.3 kg (177 lb) 09/11/2025 9:39 PM EDT Height 172.7 cm (5' 8 ) 09/11/2025 9:39 PM EDT Body Mass Index 26.91 09/11/2025 9:39 PM EDT documented in this encounter Functional Status * Hawkins Suicide Severity Rating Scale Question Answer Date of Assessment Author 1. Wish to be (past month) No 09/11/2025 9:45 PM EDT Jose Alfredo Sidhu RN 2. Suicidal Thoughts (past month) No 09/11/2025 9:45 PM EDT Jose Alfredo Sidhu RN 6. Suicide Behavior Question No 09/11/2025 9 :45 PM EDT Jose Alfredo Sidhu RN * Are You Deaf or do You Have Serious Difficulty Hearing? Answer Date of Assessment Author No 07/12/2018 6:21 AM EDT Khris Ma RN * Patient's Vision Adequate to Safely Complete Daily Activities Answer Date of Assessment Author Yes 07/12/2018 6:21 AM EDT Khris Ma, ZAINA * Do You Have Serious Difficulty Walking or Climbing Stairs? Answer Date of Assessment Author Yes 07/12/2018 6:21 AM EDT Khris Ma RN * Do You Have Difficulty Dressing or Bathing? Answer Date of Assessment Author No 07/12/2018 6:21 AM EDT Khris Ma RN * Because of a Physical, Mental, or Emotional Condition, Do You Have Serious Difficulty Concentrating, Remembering or Making a Decision? Answer Date of Assessment Author No 07/12/2018 6:21 AM Khris Rolon RN documented as of this encounter Mental Status * Alley Coma Scale Question Answer Entry Date Author Eye Opening 4 09/11/2025 10:36 PM EDT Marc Trejo RN Best Motor Response 6 09/11/2025 10:36 PM E DT Marc Trejo RN Best Verbal Response 5 09/11/2025 10:36 PM Marc Mora RN Alley Coma Scale Score 15 09/11/2025 10:36 PM EDT Marc Trejo RN * Because of a Physical, Mental or Emotional Problem, Do You Have Difficulty Doing Errands Alone Suchas Visiting a Doctor's Office or Shopping? Answer Entry Date Author Yes 07/12/2018 6:21 AM Khris Rolon RN documented in this encounter Discharge Instructions * Discharge Instructions* Jonathan Newberry APRN - 09/12/2025 1:58 AM EDT Thank you for choosing [facility] for your care today. You were evaluated for low back and abdominal pain with urinary frequency. Your exam and test results are all reassuring today. Please take all medications as prescribed. Follow-up with your primary care provider in the next few days. Call in the morning for an appointment. Return to the emergency department for any problems or concerns. * Attachments The following attachments cannot be sent through Care Everywhere. * Acute Abdominal Pain (AfterCare(R) Instructions(ER/ED)) ([place]) * Urinary Tract Infection in Women (References) ([place]) documented in this encounter Medications at Time of Discharge albuterol HFA (PROVENTIL HFA) 108 (90 Base) MCG/ACT inhaler Inhale 2 puffs into the lungs every 4 (four) hours as needed for Wheezing or Shortness of Air. 6.7 g 10/15/2023 budesonide-formo terol (SYMBICORT) 160-4.5 MCG/ACT inhaler Inhale 2 puffs into the lungs 2 (two) times daily. 1 each 3 10/15/2023 esomeprazole (NEXIUM) 40 MG capsule Take 1 capsule by mouth every morning before breakfast. 90 capsule 3 09/19/2018 ferrous sulfate 325 (65 FE) MG tablet Take 1 tablet by mouth daily. 30 tablet 2 09/17/2019 phenazopyridine (PYRIDIUM) 200 MG tablet Take 1 tablet by mouth 3 (three) times daily as needed for Pain. 6 tablet 09/12/2025 cefpodoxime (VANTIN) 100 MG tablet Take 1 tablet by mouth 2 (two) times daily for 7 days. 14 tablet 09/12/2025 5 nitrofurantoin, macrocrystal-mon ohydrate, (MACROBID) 100 MG capsuleIndicatio ns:Urinary frequency,Leukoc ytes in urine Take 1 capsule by mouth 2 (two) times daily for 7 days. 14 capsule 09/05/2025 5 documented as of this encounter ED Notes * Eladio Pena RN - 09/12/2025 2:30 AM EDT Patient ambulatory, ABC's intact, vitals stable, and in NAD upon d/c. Patient education completed with no further questions at this time upon discharge. Pt belongings with patient upon d/c off unit. * Alex Malik MD - 09/11/2025 11:43 PM EDT ED Attending Physician Supervisory Note (Split Share) - I personally saw and evaluated the patient in real-time during the ED course in conjunction with the Advanced Practice Provider. - I obtained my own history, performed my own physical exam, and developed my assessment/plan as documented below. - I have reviewed the Advanced Practice Provider's documented history, exam, assessment, and plans. - I have personally performed a substantive portion of the patient's ED care, including the medicaldecision making. Brief HPI Briefly, Naila Garcia is a 60 yr/o female with PMHx colon cancer 7 years ago, asthma, GERD, presenting for an evaluation of abdominal pain. Patient states for possible last 1 week she has been ongoing abdominal pelvic cramping/fullness sensation. At times feels like pain radiates to the left back/flank. She went to urgent care, PCP was diagnosed with UTI completed Macrobid. States symptoms have continued therefore came to the ER for further evaluation. No history of kidney stones. She denies fever, diarrhea, constipation, nausea, vomiting, blood in stool. History Provided By: Patient Physical Exam I have personally reviewed the patient's vitals as documented. Vitals: Temp: 97.7 ??F (36.5 ??C), Pulse: 66, BP: 129/63, Resp Rate: 16, SpO2: 100 % Gen: Well-appearing, non-toxic Head: Normocephalic, atraumatic Eyes: Sclera clear, conjunctiva clear ENT: Moist mucous membranes CV: 2+ peripheral pulses, no peripheral edema Resp: No respiratory distress Abd: Soft, non-tender, non-distended Psych: Cooperative, appropriate mood/affect Neuro: Awake and Alert, GCS 15 Ext: Warm, dry, well perfused, moves all extremities spontaneously Medical Decision Making Naila Garcia is a 60 yr/o female with PMHx colon cancer 7 years ago, asthma, GERD, presenting for an evaluation of abdominal pain. Vital stable overall well- appearing no acute distress abdomen soft, nontender. Presents after completing Macrobid for UTI. No fever or other infectious symptoms. Differential including not limited to cystitis, pyelonephritis, colitis, diverticulitis, small bowel obstruction, renal stone, other. Workup as below notably no leukocytosis, CMP within normal limits no evidence of FRANCO. Lipase within normal limits. UA does show 250 leukocytes, 7 WBCs although no bacteria in setting of recent antibiotic completion. Overall UA consistent with possibly partially treated UTI, offered further antibiotic therapies notably with Rocephin, cefpodoxime to treat for complicated UTI/possible pyelonephritis and she states at times pain goes to her left flank. Patient would like to proceed. Discussed return precautions, importance PCP follow-up she agrees with care plan. Medications/Treatments Given: Medications cefTRIAXone (ROCEPHIN) iv push 1 g (has no administration in time range) ketorolac (TORADOL) injection 15 mg (15 mg Intravenous Given 09/11/252233) sodium chloride 0.9 % bolus 1,000 mL (1,000 mLs Intravenous New Bag 09/11/252233) ondansetron (ZOFRAN) injection 4 mg (4 mg Intravenous Given 09/11/252233) iohexol (OMNIPAQUE) 350 MG/ML injection 80 mL (80 mLs Intravenous Given 09/12/255) Diagnostics Laboratory Data: Recent Results (from the past 24 hours) CBC w/Diff Collection Time: 09/11/25 10:26 PM Result Value Ref Range White Blood Cells 7.26 4.50 - 11.00 10*3/uL Red Blood Cells 4.03 4.00 - 5.20 10*6/uL Hemoglobin 11.1 (L) 12.0 - 16.0 g/dL Hematocrit 36.3 36.0 - 46.0 % Mean Corpuscular Volume 90.1 80.0 - 100.0 fL Mean Corpuscular Hemoglobin 27.5 26.0 - 34.0 pg Mean Corpuscular Hemoglobin Concentration 30.6 (L) 31.0 - 37.0 g/dL % Red Blood Cell Distribution Width 14.6 12.0 - 16.8 % Platelet Count 295 140 - 440 10*3/uL Mean Platelet Volume 10.9 8.4 - 12.4 fL % Neutrophils 52.3 45.0 - 80.0 % % Lymphocytes 27.4 15.0 - 50.0 % % Monocytes 7.4 0.0 - 15.0 % % Eosinophils 11.8 (H) 0.0 - 7.0 % % Basophils 0.8 0.0 - 2.0 % % Immature Granulocytes 0.3 0.0 - 1.0 % % Nucleated RBCs 0 <=0 /100 WBCs Absolute Neutrophil Count 3.79 2.00 - 8.80 10*3/uL Absolute Lymphocytes 1.99 0.70 - 5.50 10*3/uL Absolute Monocytes 0.54 0.00 - 1.70 10*3/uL Absolute Eosinophils 0.86 (H) 0.00 - 0.80 10*3/uL Absolute Basophils 0.06 0.00 - 0.20 10*3/uL Absolute Immature Granulocytes 0.02 0.00 - 0.10 10*3/uL Comprehensive Metabolic Panel(CMP) Collection Time: 09/11/25 10:26 PM Result Value Ref Range Sodium 142 136 - 145 mmol/L Potassium 4.0 3.5 - 5.1 mmol/L Chloride 105 98 - 107 mmol/L Carbon Dioxide 26 22 - 29 mmol/L Anion Gap 11 5 - 13 mmol/L Glucose, Random 86 71 - 99 mg/dL Blood Urea Nitrogen (BUN) 12 10 - 20 mg/dL Creatinine, Blood 0.80 0.55 - 1.02 mg/dL BUN/Creatinine Ratio 15.0 RATIO Estimated GFR (Cr) 85 >60 mL/min/1.73m2 Total Protein 6.9 6.4 - 8.2 g/dL Albumin 4.1 3.5 - 5.2 g/dL Globulin 2.8 1.5 - 4.5 g/dL Albumin/Globulin Ratio 1.5 1.1 - 2.5 RATIO Calcium 8.9 8.4 - 10.2 mg/dL Total Bilirubin 0.2 (L) 0.3 - 1.2 mg/dL AST/SGOT 17 5 - 34 U/L ALT/SGPT 10 0 - 55 U/L Alkaline Phosphatase 64 40 - 150 U/L Lipase Collection Time: 09/11/25 10:26 PM Result Value Ref Range Lipase 21 0 - 59 U/L Urinalysis with Reflex Collection Time: 09/11/25 10:26 PM Result Value Ref Range Color, Urine Light-Yellow Clarity, Urine Clear Specific Patterson, Urine 1.009 1.005 - 1.030 [arb'U] pH, Urine 6.0 5.0 - 9.0 [pH] Protein, Urine Negative Negative, 10 mg/dL, 15 mg/dL, 20 mg/dL, Trace Glucose, Urine Negative Negative Ketones, Urine Negative Negative Bilirubin, Urine Negative Negative mg/dL Blood, Urine 1+ (A) Negative [arb'U] Nitrite, Urine Negative Negative Urobilinogen, Urine Normal Normal Leukocyte Esterase, Urine 250 Sagrario/uL (A) Negative Reflex Microscopic? Red Blood Cells, Urine 3 (H) 0 - 2 [HPF] White Blood Cells, Urine 7 (H) 0 - 3 [HPF] Squamous Epithelial Cells, Urine <1 0 - 4 [HPF] Bacteria, Urine None None [HPF] Mucus, Urine Trace (A) None [LPF] Diagnostic Imaging: CT Abdomen & Pelvis With IV Contrast Without Oral Contrast Result Date: 09/12/2025 RADIOLOGY REPORT FACILITY: [facility] UNIT/AGE/GENDER: ED AGE: 60 YR GENDER: F PATIENT NAME/: NAILA GARCIA C 1965 UNIT NUMBER: [id number] ACCESSION NUMBER: [id number] Preliminary Report Patient: NAILA GARCIA Time Out: 01:47 Exam(s): CT ABDOMEN+ PELVIS With Contrast CT ABDOMEN + PELVIS With Contrast IMPRESSION: No acute findings within the abdomen or pelvis to explain the patient's symptoms. Dictated by: Norris Babb MD on 09-12-25 at 0147 <StatRad> <Preliminary Report Signed Copy is Final> Disposition: Discharge with outpatient follow-up, return precautions Discharge Dx: ICD-10-CM ICD-9-CM 1. Urinary tract infection with hematuria, site unspecified N39.0 599.0 R31.9 599.70 2. Abdominal pain, unspecified abdominal location R10.9 789.00 Alex Malik MD Emergency Medicine 2:03 AM 09/12/25 Alex Malik MD 09/12/25 0203 * Marc Trejo RN - 09/11/2025 9:57 PM EDT Pt hs c/o lower abdominal and back pain x1week, thought she has a UTI went to urgent care but was told she did not, blood was found in her urine. Denies hx of kidney stones, endorses colon resection and cholecystomy * Jonathan Newberry APRN - 09/11/2025 9:48 PM EDT Chief Complaint Patient presents with Abdominal Pain Pt reports hematuria x1 week. Pt states she has seen her PCP and urgent care and was told it wasn'ta UTI. Endorses lower back pain and lower abd pain. Denies dysuria but reports pressure in her bladder. History provided by: Patient Chief Complaint: Low back pain, abdominal pain, urinary frequency HPI: Pt is a 60 yr/o female with past medical history including but not limited to asthma, eczema, GERD, metastatic colon cancer, and PONV who presents for low back pain and lower abdominal pain for the past 1 week. Patient states she thought she had a urinary tract infection and went to an immediate care center where she had a negative urine dip. She states she also went to her primary care provider and also had a negative urinalysis. Patient denies history of kidney stones. Patient denies fever, chills, chest pain, shortness of breath, constipation diarrhea, black, bloody, tarry stools, or dysuria. She states that she does not feel like she is adequately emptying her bladder. She states that when she has the urge to urinate which is frequent she only urinates a small amount. Patient denies vaginal discharge. Patient states she is menopausal and has had a menstrual cycle in many years. Past Medical History: Diagnosis Date Asthma Eczema no problem at present GERD (gastroesophageal reflux disease) Metastatic colon cancer in female Nov 2018 last chemo PONV (postoperative nausea and vomiting) Poor venous access Past Surgical History: Procedure Laterality Date CHOLECYSTECTOMY COLON SURGERY 04/17/2018 COLON RESECTION and liver biopsy for colon cancer COLONOSCOPY N/A 09/30/2024 Re-scope 5 years-Dr. Gibbons HERNIA REPAIR HIATAL HERNIA REPAIR TONSILLECTOMY History - Family[1] Social History Socioeconomic History Marital status: Spouse name: Not on file Number of children: 1 Years of education: Not on file Highest education level: Not on file Occupational History Occupation: Teacher Tobacco Use Smoking status: Never Smokeless tobacco: Never Vaping Use Vaping status: Never Used Substance and Sexual Activity Alcohol use: No Drug use: No Sexual activity: Yes control/protection: Condom Other Topics Concern Not on file Social History Narrative Not on file Social Drivers of Health Financial Resource Strain: Not on file Food Insecurity: Not on file Transportation Needs: Not on file Physical Activity: Not on file Stress: Not on file Social Connections: Unknown (08/22/2023) Received from [facility] Family and Community Support Help with Day-to-Day Activities: Not on file Lonely or Isolated: Not on file Intimate Partner Violence: Unknown (08/22/2023) Received from [facility] Abuse Screen Unsafe at Home or Work/School: Not on file Feels Threatened by Someone?: Not on file Does Anyone Keep You from Contacting Others or Doint Things Outside the Home?: Not on file Physical Sign of Abuse Present: Not on file Housing Stability: Unknown (08/22/2023) Received from [facility] Housing Stability Current Living Arrangements: Not on file Potentially Unsafe Housing Conditions: Not on file Allergies as of 09/11/2025 (No Known Allergies) No current facility-administered medications on file prior to encounter. Current Outpatient Medications on File Prior to Encounter Medication Sig Dispense Refill albuterol HFA (PROVENTIL HFA) 108 (90 Base) MCG/ACT inhaler Inhale 2 puffs into the lungs every 4 (four) hours as needed for Wheezing or Shortness of Air. 6.7 g 0 budesonide-formoterol (SYMBICORT) 160-4.5 MCG/ACT inhaler Inhale 2 puffs into the lungs 2 (two) times daily. (Patient not taking: Reported on 09/30/2024.) 1 each 3 esomeprazole (NEXIUM) 40 MG capsule Take 1 capsule by mouth every morning before breakfast. 90 capsule 3 ferrous sulfate 325 (65 FE) MG tablet Take 1 tablet by mouth daily. 30 tablet 2 nitrofurantoin, macrocrystal-monohydrate, (MACROBID) 100 MG capsule Take 1 capsule by mouth 2 (two)times daily for 7 days. (Patient not taking: Reported on 09/08/2025.) 14 capsule 0 Physical Exam BP 129/63 Pulse 66 Temp 97.7 ??F (36.5 ??C) Resp 16 Ht 5' 8 (1.727 m) Wt 80.3 kg (177 lb) LMP 09/30/2013 SpO2 100% BMI 26.91 kg/m?? Physical Exam Vitals and nursing note reviewed. Constitutional: General: She is not in acute distress. Appearance: Normal appearance. She is obese. She is not ill-appearing, toxic- appearing or diaphoretic. HENT: Head: Normocephalic and atraumatic. Nose: Nose normal. No congestion or rhinorrhea. Mouth/Throat: Mouth: Mucous membranes are moist. Pharynx: Oropharynx is clear. No oropharyngeal exudate or posterior oropharyngeal erythema. Eyes: General: No scleral icterus. Right eye: No discharge. Left eye: No discharge. Extraocular Movements: Extraocular movements intact. Conjunctiva/sclera: Conjunctivae normal. Pupils: Pupils are equal, round, and reactive to light. Neck: Vascular: No carotid bruit. Cardiovascular: Rate and Rhythm: Normal rate and regular rhythm. Pulses: Normal pulses. Heart sounds: Normal heart sounds. No murmur heard. No friction rub. No gallop. Pulmonary: Effort: Pulmonary effort is normal. No respiratory distress. Breath sounds: Normal breath sounds. No stridor. No wheezing, rhonchi or rales. Chest: Chest wall: No tenderness. Abdominal: General: Bowel sounds are normal. There is no distension. Palpations: Abdomen is soft. There is no mass. Tenderness: There is abdominal tenderness. There is right CVA tenderness and left CVA tenderness. There is no guarding or rebound. Hernia: No hernia is present. Comments: Mild suprapubic tenderness to palpation Musculoskeletal: General: Normal range of motion. Cervical back: Normal range of motion and neck supple. No rigidity. No muscular tenderness. Right lower leg: No edema. Left lower leg: No edema. Lymphadenopathy: Cervical: No cervical adenopathy. Skin: General: Skin is warm and dry. Capillary Refill: Capillary refill takes less than 2 seconds. Neurological: General: No focal deficit present. Mental Status: She is alert and oriented to person, place, and time. Psychiatric: Mood and Affect: Mood normal. Differential Diagnosis includes but not limited to: Colitis, Crohn's, Diverticulitis, Gastritis, Gastroenteritis, Intestinal Obstruction, Intestinal Perforation, Irritable Bowel Disease, Pancreatitis, Peptic Ulcer Disease, Peritonitis, Pyelonephritis, Ulcerative Colitis, UTI, renal colic, obstructive uropathy, amongst others All items listed above are considered QUESTIONABLE or AT RISK FOR pending diagnostics and final medical decision making. Medical Record Review: Previous medical records reviewed Labs Results: Recent Results (from the past 24 hours) CBC w/Diff Collection Time: 09/11/25 10:26 PM Result Value Ref Range White Blood Cells 7.26 4.50 - 11.00 10*3/uL Red Blood Cells 4.03 4.00 - 5.20 10*6/uL Hemoglobin 11.1 (L) 12.0 - 16.0 g/dL Hematocrit 36.3 36.0 - 46.0 % Mean Corpuscular Volume 90.1 80.0 - 100.0 fL Mean Corpuscular Hemoglobin 27.5 26.0 - 34.0 pg Mean Corpuscular Hemoglobin Concentration 30.6 (L) 31.0 - 37.0 g/dL % Red Blood Cell Distribution Width 14.6 12.0 - 16.8 % Platelet Count 295 140 - 440 10*3/uL Mean Platelet Volume 10.9 8.4 - 12.4 fL % Neutrophils 52.3 45.0 - 80.0 % % Lymphocytes 27.4 15.0 - 50.0 % % Monocytes 7.4 0.0 - 15.0 % % Eosinophils 11.8 (H) 0.0 - 7.0 % % Basophils 0.8 0.0 - 2.0 % % Immature Granulocytes 0.3 0.0 - 1.0 % % Nucleated RBCs 0 <=0 /100 WBCs Absolute Neutrophil Count 3.79 2.00 - 8.80 10*3/uL Absolute Lymphocytes 1.99 0.70 - 5.50 10*3/uL Absolute Monocytes 0.54 0.00 - 1.70 10*3/uL Absolute Eosinophils 0.86 (H) 0.00 - 0.80 10*3/uL Absolute Basophils 0.06 0.00 - 0.20 10*3/uL Absolute Immature Granulocytes 0.02 0.00 - 0.10 10*3/uL Comprehensive Metabolic Panel(CMP) Collection Time: 09/11/25 10:26 PM Result Value Ref Range Sodium 142 136 - 145 mmol/L Potassium 4.0 3.5 - 5.1 mmol/L Chloride 105 98 - 107 mmol/L Carbon Dioxide 26 22 - 29 mmol/L Anion Gap 11 5 - 13 mmol/L Glucose, Random 86 71 - 99 mg/dL Blood Urea Nitrogen (BUN) 12 10 - 20 mg/dL Creatinine, Blood 0.80 0.55 - 1.02 mg/dL BUN/Creatinine Ratio 15.0 RATIO Estimated GFR (Cr) 85 >60 mL/min/1.73m2 Total Protein 6.9 6.4 - 8.2 g/dL Albumin 4.1 3.5 - 5.2 g/dL Globulin 2.8 1.5 - 4.5 g/dL Albumin/Globulin Ratio 1.5 1.1 - 2.5 RATIO Calcium 8.9 8.4 - 10.2 mg/dL Total Bilirubin 0.2 (L) 0.3 - 1.2 mg/dL AST/SGOT 17 5 - 34 U/L ALT/SGPT 10 0 - 55 U/L Alkaline Phosphatase 64 40 - 150 U/L Lipase Collection Time: 09/11/25 10:26 PM Result Value Ref Range Lipase 21 0 - 59 U/L Urinalysis with Reflex Collection Time: 09/11/25 10:26 PM Result Value Ref Range Color, Urine Light-Yellow Clarity, Urine Clear Specific Patterson, Urine 1.009 1.005 - 1.030 [arb'U] pH, Urine 6.0 5.0 - 9.0 [pH] Protein, Urine Negative Negative, 10 mg/dL, 15 mg/dL, 20 mg/dL, Trace Glucose, Urine Negative Negative Ketones, Urine Negative Negative Bilirubin, Urine Negative Negative mg/dL Blood, Urine 1+ (A) Negative [arb'U] Nitrite, Urine Negative Negative Urobilinogen, Urine Normal Normal Leukocyte Esterase, Urine 250 Sagrario/uL (A) Negative Reflex Microscopic? Red Blood Cells, Urine 3 (H) 0 - 2 [HPF] White Blood Cells, Urine 7 (H) 0 - 3 [HPF] Squamous Epithelial Cells, Urine <1 0 - 4 [HPF] Bacteria, Urine None None [HPF] Mucus, Urine Trace (A) None [LPF] Lab Comments: I have reviewed the above lab results. Radiology: CT Abdomen & Pelvis With IV Contrast Without Oral Contrast Result Date: 09/12/2025 RADIOLOGY REPORT FACILITY: [facility] UNIT/AGE/GENDER: ED AGE: 60 YR GENDER: F PATIENT NAME/: NAILA GARCIA C 1965 UNIT NUMBER: [id number] ACCESSION NUMBER: [id number] Preliminary Report Patient: NAILA GARCIA Time Out: 01:47 Exam(s): CT ABDOMEN+ PELVIS With Contrast CT ABDOMEN + PELVIS With Contrast IMPRESSION: No acute findings within the abdomen or pelvis to explain the patient's symptoms. Dictated by: Norris Babb MD on 09-12-25 at 0147 <StatRad> <Preliminary Report Signed Copy is Final> Radiology Comments: I have reviewed the above radiographic results. EKG interpreted by MD, see note for details. Medications given in ED: Medications cefTRIAXone (ROCEPHIN) iv push 1 g (has no administration in time range) ketorolac (TORADOL) injection 15 mg (15 mg Intravenous Given 09/11/252233) sodium chloride 0.9 % bolus 1,000 mL (1,000 mLs Intravenous New Bag 09/11/252233) ondansetron (ZOFRAN) injection 4 mg (4 mg Intravenous Given 09/11/252233) iohexol (OMNIPAQUE) 350 MG/ML injection 80 mL (80 mLs Intravenous Given 09/12/255) Progress Notes/ED Course MDM: Pt is a 60 yr/o female with past medical history including but not limited to asthma, eczema, GERD, metastatic colon cancer, and PONV who presents for low back pain and lower abdominal pain for the past 1 week. Patient states she thought she had a urinary tract infection and went to an immediate care center where she had a negative urine dip. She states she also went to her primary care provider and also had a negative urinalysis. Patient denies history of kidney stones. Patient denies fever, chills, chest pain, shortness of breath, constipation diarrhea, black, bloody, tarry stools, or dysuria. She states that she does not feel like she is adequately emptying her bladder. She states that when she has the urge to urinate which is frequent she only urinates a small amount. Patient denies vaginal discharge. Patient states she is menopausal and has had a menstrual cycle in many years. Plan: CBC, CMP, lipase, UA, CT abdomen pelvis with IV contrast, IV fluids, NSAIDs, antiemetics, discharge Nursing performed PVR with 50 mL residual urine. 0104 Discussed the patient and case with Dr. Malik. 0159 Pt rechecked. Discussed [place] results, CT results, symptom management, strict return precautions, and plan to discharge home. Instructed to follow up with your primary care provider and urologyfor further evaluation. Rx given for cefpodoxime and Pyridium. All discharge instructions discussed. Pt is to return to ED as needed, if symptoms worsen or if any new symptoms develop. Pt understandsand agrees with plan. Pt has no further questions at this time. In discharge instructions, pt is instructed to follow up for BP recheck. Diagnosis: ICD-10-CM ICD-9-CM 1. Urinary tract infection with hematuria, site unspecified N39.0 599.0 R31.9 599.70 2. Abdominal pain, unspecified abdominal location R10.9 789.00 Follow Up: Macarena Hallie Jamie, [employer] [address] [address] Call in 1 day Rx: Encounter Medications Signed Prescriptions Disp Refills cefpodoxime (VANTIN) 100 MG tablet 14 tablet 0 Sig: Take 1 tablet by mouth 2 (two) times daily for 7 days. phenazopyridine (PYRIDIUM) 200 MG tablet 6 tablet 0 Sig: Take 1 tablet by mouth 3 (three) times daily as needed for Pain. EMR Dragon/Mason[employer]or disclaimer: Some of this encounter note is an electronic machine coremaker/translation of spoken language to printed text. The electronic translation of spoken language may permit erroneous, or at times, nonsensicalwords or phrases to be inadvertently transcribed; Although I have reviewed the note for such errors, some may still exist. I have discussed the patient with Dr. Malik and they agree with plan of care. Provider note signed by: [1] Family History Problem Relation Name Age of Onset Lung cancer Mother smoker Liver cancer Father 70 cholangiocarcinoma Colon cancer Paternal Grandfather 70 Jonathan Newberry APRN 09/12/25231 Alex Malik MD 09/12/25231 Cosigned by Alex Malik MD at 09/12/2025 2:32 AM EDT Associated attestation - Alex Malik MD - 09/12/2025 2:32 AM EDT ED Attending Physician Supervisory Note (Split Share) - I personally saw and evaluated the patient in real-time during the ED course in conjunction with the Advanced Practice Provider. - I obtained my own history, performed my own physical exam, and developed my assessment/plan as documented in my note dated same visit. - I have reviewed the Advanced Practice Provider's documented history, exam, assessment, and plans. - I have personally performed a substantive portion of the patient's ED care, including the medicaldecision making. Alex Malik MD Emergency Medicine 2:32 AM 09/12/25 documented in this encounter Plan of Treatment Upcoming Encounters Date Type Department Care Team (Late st Contact Info) Description 12/25/2025 11:00 AM EST [facility] [address] [facility] [address] [place] [address] Alyssa Bullard MD [address] [facility] [address] [place] [address] 01/05/2026 2:45 PM EST Lab Visit [facility] [address] [place] [address] 01/05/2026 3:00 PM EST Office Visit [facility] [address] [place] [address] Jennifer Hadley MD [address] [id number] 09/11/2026 1:30 PM EDT Office Visit [facility] [address] [facility] [address] [place] [address] Hallie Fiore APRN [address] [facility] [address] [place] [address] documented as of this encounter Procedures Procedure Name Priority Date/Time Associated Diagnosis Comments CT ABDOMEN & PELVIS W IV CONTRAST STAT 09/12/2025 12:05 AM EDT URINALYSIS WITH REFLEX STAT 10:26 PM EDT CBC W/DIFF STAT 09/11/2025 10:26 PM EDT LIPASE STAT 09/11/2025 10:26 PM EDT COMPREHENSIVE METABOLIC PANEL (CMP) STAT 09/11/2025 10:26 PM EDT documented in this encounter Results * CT Abdomen & Pelvis With IV Contrast Without Oral Contrast (09/12/2025 12:05 AM EDT) [facility] RAD WORKSTATION ID [id number] RI POWERSCRIBE Anatomical Region Laterality Modality Abdomen Computed Tomogra phy 09/12/2025 7:14 AM EDT Narrative 09/12/2025 7:19 AM EDT RE[facility]ING YOUR TEST RESULTS IN [facility] IS NOT A SUBSTITUTE FOR DISCUSSING THOSE RESULTS WITH YOUR HEALTH CARE PROVIDER. PLEASE CONTACT YOUR PROVIDER VIA [employer] TO DISCUSS ANY QUESTIONS OR CONCERNS YOU MAY HAVE REGARDING THESE TEST RESULTS. RADIOLOGY REPORT FACILITY: [facility] UNIT/AGE/GENDER: J.ED ER AGE:60 Y SEX:F PATIENT NAME/: NAILA GARCIA C 1965 UNIT NUMBER: [id number] ACCESSION NUMBER: [id number] CT ABDOMEN AND PELVIS W IV CONTRAST 09/12/2025 1:48 AM HISTORY: Abdominal pain, acute, nonlocalized. History of colon cancer. TECHNIQUE: CT images of the abdomen and pelvis were obtained with IV contrast. CT scans at this facility use dose modulation, iterative reconstruction, and/or weight-based dosing when appropriate to reduce radiation dose to as low as reasonably achievable (ALARA). COMPARISON: March 17, 2022. CT ABDOMEN AND PELVIS FINDINGS: There is diffuse interstitial fibrotic change with a subpleural distribution, similar to prior examination. The liver is normal in caliber. The gallbladder is surgically absent. No biliary ductal dilatation is evident. The spleen, adrenal glands, and pancreas are stable in appearance. The kidneys enhance symmetrically without nephrolithiasis or hydronephrosis. There is a moderate hiatal hernia. No small bowel dilatation is identified. There are surgical changes of a right hemicolectomy with a patent ileocolonic anastomosis. No recurrent tumor is identified in the operative bed. No abdominopelvic adenopathy or fluid collection is identified. The abdominal aorta is normal in caliber. The bladder is distended without wall thickening. No acute osseous abnormality is identified within the visualized skeleton. IMPRESSION: 1. No acute CT abnormality identified in the abdomen and pelvis to account for patient's symptoms. 2. Stable chronic and postoperative findings as detailed above. A preliminary report was provided. Dictated by: Neri Cevallos M.D. Images and Report reviewed and interpreted by: Neri Cevallos M.D. <PS><Electronically signed by: Neri Cevallos M.D.> 09/12/2025717 [id number] Procedure Note Neri Cevallos MD - 09/12/2025 REVIEWING YOUR TEST RESULTS IN [employer] IS NOT A SUBSTITUTE FORDISCUSSING THOSE RESULTS WITH YOUR HEALTH CARE PROVIDER. PLEASE CONTACT YOUR PROVIDER VIA [employer] TO DISCUSS ANY QUESTIONS ORCONCERNS YOU MAY HAVE REGARDING THESE TEST RESULTS. RADIOLOGY REPORT FACILITY: [facility] UNIT/AGE/GENDER: J.ED ER AGE:60 Y SEX:F PATIENT NAME/: NAILA GARCIA C 1965 UNIT NUMBER: [id number] ACCESSION NUMBER: [id number] CT ABDOMEN AND PELVIS W IV CONTRAST 09/12/2025 1:48 AM HISTORY: Abdominal pain, acute, nonlocalized. History of colon cancer. TECHNIQUE: CT images of the abdomen and pelvis were obtained with IV contrast. CT scans at this facility use dose modulation, iterative reconstruction, and/or weight-based dosing when appropriate to reduce radiation dose to as low as reasonably achievable (ALARA). COMPARISON: March 17, 2022. CT ABDOMEN AND PELVIS FINDINGS: There is diffuse interstitial fibrotic change with a subpleural distribution, similar to prior examination. The liver is normal in caliber. The gallbladder is surgically absent. No biliary ductal dilatation is evident. The spleen, adrenal glands, and pancreas are stable in appearance. The kidneys enhance symmetrically without nephrolithiasis or hydronephrosis. There is a moderate hiatal hernia. No small bowel dilatation is identified. There are surgical changes of a right hemicolectomy with a patent ileocolonic anastomosis. No recurrent tumor is identified in the operative bed. No abdominopelvic adenopathy or fluid collection is identified. The abdominal aorta is normal in caliber. The bladder is distended without wall thickening. No acute osseous abnormality is identified within the visualized skeleton. IMPRESSION: 1. No acute CT abnormality identified in the abdomen and pelvis to account for patient's symptoms. 2. Stable chronic and postoperative findings as detailed above. A preliminary report was provided. Dictated by: Neri Cevallos M.D. Images and Report reviewed and interpreted by: Neri Cevallos M.D. <PS><Electronically signed by: Neri Cevallos M.D.> 09/12/2025717 [id number] Jonathan Newberry [employer] IM CT ORDERABLES Final Res ult * (ABNORMAL) Urinalysis with Reflex (09/11/2025 10:26 PM EDT) Color, Urine Light-Yellow 09/11/2025 10:37 PM [facility] ([id number]) Clarity, Urine Clear 09/11/2025 10:37 PM [facility] ([id number]) Specific [place], Urine 1.009 1.005 - 1.030 [arb'U] 09/11/2025 10:37 PM [facility] ([id number]) pH, Urine 6.0 5.0 - 9.0 [pH] 09/11/2025 10:37 PM [facility] ([id number]) Protein, Urine Negative Negative, 10 mg/dL, 15 mg/dL, 20 mg/dL, Trace 09/11/2025 10:37 PM [facility] ([id number]) Glucose, Urine Negative Negative 09/11/2025 10:37 PM [facility] ([id number]) Ketones, Urine Negative Negative 09/11/2025 10:37 PM [facility] ([facility]) Bilirubin, Urine Negative Negative mg/dL 09/11/2025 10:37 PM [facility] ([facility]) Blood, Urine 1+(A) Negative [arb'U] 09/11/2025 10:37 PM [facility] ([facility]) Nitrite, Urine Negative Negative 09/11/2025 10:37 PM [facility] ([facility]) Urobilinogen, Urine Normal Normal 09/11/2025 10:37 PM [facility] ([facility]) Leukocyte Esterase, Urine 250 Sagrario/uL(A) Negative 09/11/2025 10:37 PM [facility] ([facility]) Reflex Microscopic? 09/11/2025 10:37 PM [facility] ([facility]) Comment:Microscopic performe d Red Blood Cells, Urine 3(H) 0 - 2 [HPF] 09/11/2025 10:37 PM [facility] ([facility]) White Blood Cells, Urine 7(H) 0 - 3 [HPF] 09/11/2025 10:37 PM [facility] ([facility]) Squamous Epithelial Cells, Urine <1 0 - 4 [HPF] 09/11/2025 10:37 PM [facility] ([facility]) Bacteria, Urine None None [HPF] 09/11/2025 10:37 PM [facility] ([facility]) Mucus, Urine Trace(A) None [LPF] 09/11/2025 10:37 PM [facility] ([facility]) Urine MID-STREAM URINE SPECIMEN / Unknown Non-blood Collection / Unknown 09/11/2025 10:26 PM EDT 09/11/2025 10:31 PM EDT us Alex Malik MD URINE ORDERABLES Final R esult [facility] ([facility]) [address] [place] [address] * Lipase (09/11/2025 10:26 PM EDT) Lipase 21 0 - 59 U/L 09/11/2025 11:02 PM EDT [facility] ([id number]) Blood VENOUS BLOOD SPECIMEN / Unknown Venipuncture / Unknown 09/11/2025 10:26 PM EDT 09/11/2025 10:32 PM EDT us Alex Malik MD LAB BLOOD ORDERABLES Fin al Result [facility] ([id number]) [address] [place] [address] * (ABNORMAL) Comprehensive Metabolic Panel(CMP) (09/11/2025 10:26 PM EDT) Sodium 142 136 - 145 mmol/L 09/11/2025 11:02 PM EDT [facility] ([id number]) Comment:Excess protein and/o r lipids can falsely decrease sodium levels (pseudo hyponatremia). Potassium 4.0 3.5 - 5.1 mmol/L 09/11/2025 11:02 PM T [facility] ([id number]) Comment:Falsely elevated pot assium can occur in patients with high WBC or platelet counts. Chloride 105 98 - 107 mmol/L 09/11/2025 11:02 PM T [facility] ([id number]) Comment:Falsely elevated chl oride levels can be seen in patients taking bromide containing medications. Carbon Dioxide 26 22 - 29 mmol/L 09/11/2025 11:02 PM EDT [facility] ([id number]) Anion Gap 11 5 - 13 mmol/L 09/11/2025 11:02 PM [facility] ([id number]) Comment:Calculation: Na - (C l + CO2) Glucose, Random 86 71 - 99 mg/dL 09/11/2025 11:02 PM T [facility] ([id number]) Blood Urea Nitrogen (BUN) 12 10 - 20 mg/dL 09/11/2025 11:02 PM T [facility] ([id number]) Creatinine, Blood 0.80 0.55 - 1.02 mg/dL 09/11/2025 11:02 PM EDT [facility] ([facility]) BUN/Creatinine Ratio 15.0 RATIO 09/11/2025 11:02 PM EDT [facility] ([facility]) Estimated GFR (Cr) 85 >60 mL/min/1.7 3m2 09/11/2025 11:02 PM T [facility] ([facility]) Comment:eGFR calculated base d on IDMS traceable, enzymatic creatinine method using the CKD-EPI 2020 equation. Total Protein 6.9 6.4 - 8.2 g/dL 09/11/2025 11:02 PM T [facility] ([facility]) Albumin 4.1 3.5 - 5.2 g/dL 09/11/2025 11:02 PM T [facility] ([facility]) Globulin 2.8 1.5 - 4.5 g/dL 09/11/2025 11:02 PM T [facility] ([facility]) Albumin/Globulin Ratio 1.5 1.1 - 2.5 RATIO 09/11/2025 11:02 PM EDT [facility] ([facility]) Calcium 8.9 8.4 - 10.2 mg/dL 09/11/2025 11:02 PM T [facility] ([facility]) Total Bilirubin 0.2(L) 0.3 - 1.2 mg/dL 09/11/2025 11:02 PM EDT [facility] ([facility]) AST/SGOT 17 5 - 34 U/L 09/11/2025 11:02 PM [facility] ([facility]) ALT/SGPT 10 0 - 55 U/L 09/11/2025 11:02 PM T [facility] ([facility]) Alkaline Phosphatase 64 40 - 150 U/L 09/11/2025 11:02 PM T [facility] ([facility]) Blood VENOUS BLOOD SPECIMEN / Unknown Venipuncture / Unknown 09/11/2025 10:26 PM EDT 09/11/2025 10:32 PM EDT us Alex Malik MD LAB BLOOD ORDERABLES Fin al Result [facility] ([facility]) [address] [place] [address] * (ABNORMAL) CBC w/Diff (09/11/2025 10:26 PM EDT) [facility] [address] White Blood Cells 7.26 4.50 - 11.00 10*3/uL LAB DEVICE: Grapeshot XN-10 09/11/2025 11:34 PM EDT [facility] ([facility]) Red Blood Cells 4.03 4.00 - 5.20 10*6/uL LAB DEVICE: SYJobinasecondEX XN-10 09/11/2025 11:34 PM EDT [facility] ([facility]) Hemoglobin 11.1(L) 12.0 - 16.0 g/dL LAB DEVICE: SYValuNet XN-10 09/11/2025 11:34 PM [facility] ([facility]) Hematocrit 36.3 36.0 - 46.0 % LAB DEVICE: SYJobinasecondEX XN-10 09/11/2025 11:34 PM [facility] ([facility]) Mean Corpuscular Volume 90.1 80.0 - 100.0 fL LAB DEVICE: SYJobinasecondEX XN-10 09/11/2025 11:34 PM [facility] ([facility]) Mean Corpuscular Hemoglobin 27.5 26.0 - 34.0 pg LAB DEVICE: SY[employer]Net XN-10 09/11/2025 11:34 PM [facility] ([facility]) Mean Corpuscular Hemoglobin Concentration 30.6(L) 31.0 - 37.0 g/dL LAB DEVICE: SY[employer]Net XN-10 09/11/2025 11:34 PM [facility] ([facility]) % Red Blood Cell Distribution Width 14.6 12.0 - 16.8 % LAB DEVICE: SYSMEX XN-10 09/11/2025 11:34 PM [facility] ([facility]) Platelet Count 295 140 - 440 10*3/uL LAB DEVICE: SYSMEX XN-10 09/11/2025 11:34 PM [facility] ([facility]) Mean Platelet Volume 10.9 8.4 - 12.4 fL LAB DEVICE: SYSMEX XN-10 09/11/2025 11:34 PM [facility] ([facility]) % Neutrophils 52.3 45.0 - 80.0 % LAB DEVICE: SYSMEX XN-10 09/11/2025 11:34 PM [facility] ([facility]) % Lymphocytes 27.4 15.0 - 50.0 % LAB DEVICE: SYSMEX XN-10 09/11/2025 11:34 PM [facility] ([facility]) % Monocytes 7.4 0.0 - 15.0 % LAB DEVICE: SYSMEX XN-10 09/11/2025 11:34 PM [facility] ([facility]) % Eosinophils 11.8(H) 0.0 - 7.0 % LAB DEVICE: SYSMEX XN-10 09/11/2025 11:34 PM [facility] ([facility]) % Basophils 0.8 0.0 - 2.0 % LAB DEVICE: SYSMEX XN-10 09/11/2025 11:34 PM [facility] ([facility]) % Immature Granulocytes 0.3 0.0 - 1.0 % LAB DEVICE: SYSMEX XN-10 09/11/2025 11:34 PM [facility] ([facility]) % Nucleated RBCs 0 <=0 /100 WBCs LAB DEVICE: SYSMEX XN-10 09/11/2025 11:34 PM [facility] ([facility]) Absolute Neutrophil Count 3.79 2.00 - 8.80 10*3/uL LAB DEVICE: SYSMEX XN-10 09/11/2025 11:34 PM [facility] ([facility]) Absolute Lymphocytes 1.99 0.70 - 5.50 10*3/uL LAB DEVICE: SYSMEX XN-10 09/11/2025 11:34 PM [facility] ([facility]) Absolute Monocytes 0.54 0.00 - 1.70 10*3/uL LAB DEVICE: SYSMEX XN-10 09/11/2025 11:34 PM [facility] ([facility]) Absolute Eosinophils 0.86(H) 0.00 - 0.80 10*3/uL LAB DEVICE: SYSMEX XN-10 09/11/2025 11:34 PM EDT [facility] ([id number]) Absolute Basophils 0.06 0.00 - 0.20 10*3/uL LAB DEVICE: SYSMEX XN-10 09/11/2025 11:34 PM EDT [facility] ([id number]) Absolute Immature Granulocytes 0.02 0.00 - 0.10 10*3/uL LAB DEVICE: SYSMEX XN-10 09/11/2025 11:34 PM EDT [facility] ([id number]) Blood VENOUS BLOOD SPECIMEN / Unknown Venipuncture / Unknown 09/11/2025 10:26 PM EDT 09/11/2025 10:32 PM EDT us Alex Malik MD LAB BLOOD ORDERABLES Fin al Result [facility] ([id number]) [address] [place] [id number] documented in this encounter Visit Diagnoses Diagnosis Urinary tract infection with hematuria, site unspecified- Primary Abdominal pain, unspecified abdominal location documented in this encounter Administered Medications Inactive Administered Medications - up to 3 most recent administrations Medication Order MAR Action Action Date Dose Rate Site cefTRIAXone (ROCEPHIN) iv push 1 g 1 g, Intravenous, at 180 mL/hr, Once, On Mon09/12/25 at 0200, For 1 dose, STATIndications:Urinary tract 1 g Q24H Given 09/12/2025 2:25 AM EDT 1 g 180 mL/hr iohexol (OMNIPAQUE) 350 MG/ML injection 80 mL 80 mL, Intravenous, Once, On Mon09/12/25 at 0015, For 1 dose, 100 mL, Routine Given 09/12/2025 12:06 AM EDT 80 mLs ketorolac (TORADOL) injection 15 mg 15 mg, Intravenous, Once, On Lauren 09/11/25 at 2215, For 1 dose, 1 mL, STAT Given 09/11/2025 10:34 PM EDT 15 mg ondansetron (ZOFRAN) injection 4 mg 4 mg, Intravenous, Once, On Lauren 09/11/25 at 2215, For 1 dose, 2 mL, STAT Given 09/11/2025 10:34 PM EDT 4 mg sodium chloride 0.9 % bolus 1,000 mL 1,000 mL, Intravenous, at 999 mL/hr, Once, On Lauren 09/11/25 at 2215, For 1 dose, 1,000 mL, Administer over 60 Minutes, STAT New Bag 09/11/2025 10:34 PM EDT 1,000 mLs 999 mL/hr documented in this encounter Active and Recently Administered Medications Times are shown in EDT. Scheduled Medication Order 09/10/2025 09/11/2025 09/12/2025 cefTRIAXone (ROCEPHIN) iv push 1 g (COMPLETED) 1 g, Intravenous, at 180 mL/hr, Once, On Mon09/12/25 at 0200, For 1 dose, STAT 0225 (Given - Provid er: Eladio Pena, ZAINA) iohexol (OMNIPAQUE) 350 MG/ML injection 80 mL (COMPLETED) 80 mL, Intravenous, Once, On Mon09/12/25 at 0015, For 1 dose, 100 mL, Routine 0006 (Given - Provid er: Lorenzo Sparrow) ketorolac (TORADOL) injection 15 mg (COMPLETED) 15 mg, Intravenous, Once, On Lauren 09/11/25 at 2215, For 1 dose, 1 mL, STAT 2234 (Given - Provider: Marc Trejo, ZAINA) ondansetron (ZOFRAN) injection 4 mg (COMPLETED) 4 mg, Intravenous, Once, On Lauren 09/11/25 at 2215, For 1 dose, 2 mL, STAT 2234 (Given - Provider: Marc Trejo, ZAINA) sodium chloride 0.9 % bolus 1,000 mL (COMPLETED) 1,000 mL, Intravenous, at 999 mL/hr, Once, On Lauren 09/11/25 at 2215, For 1 dose, 1,000 mL, Administer over 60 Minutes, STAT 2234 (New Bag - Provider: Marc Trejo RN) 0220 (Stopped - Provider: Eladio Pean, ZAINA) documented in this encounter 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
--- OUTSIDE RECORDS SUMMARY | 2025-09-30 14:15 | XMS_ITS | Encounter Summary ---
Author Organization [facility] Address [address] [place] [address] Care Team Providers Care Clinical Operations Manager Name Role Phone Hallie Fiore APRN Primary Care Provider [phone] Reason for Visit * Reason Comments Follow-up Encounter Details Date Type Department Care Team (Late st Contact Info) Description 09/30/2025 2:15 PM EST Office Visit [facility] [address] [place] [address] Jennifer Hadley MD [address] [facility] [address] [place], [place] [id number] Fatigue, unspecified type (Primary Dx) Social History Tobacco Use Types Packs/Day Years Used Date Smoking Tobacco: Never Smokeless Tobacco: Never Alcohol Use Standard Drinks/Week Comments No 0 (1 standard drink = 0.6 oz pur e alcohol) Hunger Vital Sign Answer Date Recorded Within the past 12 months, y ou worried that your food would run out before you got the money to buy more. Never true 09/30/20 25 Within the past 12 months, t he food you bought just didn't last and you didn't have money to get more. Never true 09/30/2025 PRAPARE - Transportation Answer Date Re corded In the past 12 months, has l ack of transportation kept you from medical appointments or from getting medications? No 09/13 In the past 12 months, has l ack of transportation kept you from meetings, work, or from getting things needed for daily living? No 09/30/2025 Housing Stability Vital Sign Answer Marty e Recorded In the last 12 months, was t here a time when you were not able to pay the mortgage or rent on time? No 09/30/2025 In the past 12 months, how m any times have you moved where you were living? 0 09/30/2025 At any time in the past 12 m [facility], were you homeless or living in a fci (including now)? No 09/30/2025 [facility] Utilities Answer Date Recorded In the past 12 months has [facility] [employer], gas, oil, or water company threatened to shut off services in your home? No 09/30/2025 Comments No Sex and Gender Information Value [...] Sign Reading Time Taken Comments Blood Pressure 115/59 09/30/2025 2:07 PM EST Pulse 69 09/30/2025 2:07 PM EST Temperature 36.6 C (97.8 F) 09/30/2025 2:07 PM EST Respiratory Rate 16 09/30/2025 2:07 PM EST Oxygen Saturation 100% 09/30/2025 2:0 7 PM EST Inhaled Oxygen Concentration - - Weight 81.3 kg (179 lb 2 oz) 09/30/2025 2:07 PM EST Height 172.7 cm (5' 8 ) 09/30/2025 2:07 PM EST pt verified height in office Body Mass Index 27.24 09/30/2025 2:07 PM EST documented in this encounter Functional Status * Are You Deaf or do You Have Serious Difficulty Hearing? Answer Date of Assessment Author No 07/12/2018 6:21 AM Khris Rolon, ZAINA * Patient's Vision Adequate to Safely Complete Daily Activities Answer Date of Assessment Author Yes 07/12/2018 6:21 AM Khris Rolon, ZAINA * Do You Have Serious Difficulty Walking or Climbing Stairs? Answer Date of Assessment Author Yes 07/12/2018 6:21 AM Khris Rolon, RN * Do You Have Difficulty Dressing or Bathing? Answer Date of Assessment Author No 07/12/2018 6:21 AM Khris Rolon, ZAINA * Because of a Physical, Mental, or [...] Khris Rolon RN documented in this encounter Progress Notes * Jennifer Hadley MD - 09/30/2025 2:15 PM EST HEMATOLOGY- ONCOLOGY CLINIC NOTE [facility] 09/30/2025 Patient Identification: Name: Rosie Garcia Age: 60 yr/o Sex: female : 1965 Hallie Fiore APRN Chief Complaint Patient presents with Follow-up Oncologic Diagnosis: 1. 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 04/17/2018: Palliative colectomy due to obstruction, liver mass biopsy (Dr. Gibbons) 2. 05/14/2018-12/12/2018: FOLFOX chemotherapy - Hospitalized after cycle 4 with colitis - Dose reduced with cycle 5- omitted bolus, reduced oxaliplatin - Cycle 7 delayed by 2 weeks due to neutropenic fever - Oxaliplatin dropped due to neutropenia with cycle 10 History on Oncologic Illness: Rosie Garcia is a 60 yr/o female who presents today for metastatic colon cancer. In April 2018 she developed progressive constipation. She was admitted to [facility] 04/16/2018 for a 2 week history of abdominal pain, constipation, nausea, and vomiting. She had a previous colonoscopy 5 years prior to this with no abnormal findings per her report. No family history of colorectal cancer. CT of the chest and pelvis with contrast on 04/16/2018 showed a likely mass inthe ascending colon with marked stool distention. Distal ileal bowel loops are fluid distended suggesting partial colonic obstruction. There is a 2 centimeter low-attenuation lesion in the inferior margin of the right lower lobe of the liver which was suspicious for hepatic metastatic disease. Alsonoted was a small to moderate size hiatal hernia. On 04/17/2018 she underwent terminal ileum and right colon resection and liver biopsy. Pathology showed invasive moderately lead to poorly differentiated adenocarcinoma of the cecum invading through the muscularis into the pericolonic adipose tissue. The greatest extent of the tumor was 3.2 centimeters. Lymphovascular invasion was noted. All surgical margins were free of tumor. 2 of 21 recovered lymph nodes are positive for metastatic adenocarcinoma with a greatest dimension of metastatic focus 0.6 centimeters. Extranodal extension identified. MSI testing was negative for microsatellite instability, there was no K-kiet mutation, no NRAS mutation, no BRAF mutation. Liver biopsy was positive for metastatic adenocarcinoma of the colon measuring 1.8 centimeters in greatest extent. On presentation she was anemia with Hgb of 9.2 and microcytic with MCV of 71.4. CT of the chest on 04/22/2018 for staging purposes did not show any evidence of metastatic disease to the chest. There were interstitial changes noted in the lung parenchyma. The patient reports that about 5 years ago this is detected on CT scan and she was experienced shortness of breath which has since been controlled with use of Symbicort. On 05/01/[address] triple phase of the liver, abd without contrast which showed that thepreviously seen inferior right hepatic lobe lesion no longer well seen. There was an additional 8mmsuspected lesion in right hepatic lobe. 05/14/2018-11/22/2018 she receive 12 cycles of FOLFOX chemotherapy. She was hospitalized after cycle 4with colitis. Dose reduced with cycle 5- omitted bolus, reduced oxaliplatin. Oxaliplatin was dropped with cycle 10 due to neuropathy. On 08/06/[address] triple phase of the liver abdomen and pelvis to follow up on this suspected metastatic lesion in the liver. This showed no residual hepatic metastases and the previous liver lesion had completely resolved. CT of the chest 08/06/2018 showed no evidence of Bone scan, CT chest and CT triple phase of the liver on 01/10/2019 showed stable to marginally improved peripheral interstitial disease in the lung. There was no visible disease noted in the liver. No osseous diseaseon bone scan.metastatic disease to the chest. As evaluated by Dr. Schaeffer on 08/16/2018 with recommendation for no surgical intervention since there are no visible liver lesions. She completed 12 cycles of chemotherapy on 11/22/2018. 03/17/2022 CT c/a/p showed Chronic interstitial fibrotic change in a subpleural and lower lobe predominant distribution, which limits evaluation for small underlying metastases. No CT evidence of metastatic disease in the thorax given this limitation. Interval history: She is here today for Assessment of her Metastatic Colon Cancer She developed flank pain and hematuria and was evaluated in the ER. 09/11/25 CT abd/pelvis showed 1. No acute CT abnormality identified in the abdomen and pelvis to account for patient's symptoms. 2. Stable chronic and postoperative findings as detailed above. She was diagnosed with a UTI and has also been referred to urology to w/u the hematuria. She reports having COVID beginning o 08/2025 and since that time has felt fatigue and low energy. Past Medical History: Diagnosis Date Asthma Eczema no problem at present GERD (gastroesophageal reflux disease) Metastatic colon cancer in female Nov 2018 last chemo PONV (postoperative nausea and vomiting) Poor venous access Past Surgical History: Procedure Laterality Date CHOLECYSTECTOMY COLON SURGERY 04/17/2018 COLON RESECTION and liver biopsy for colon cancer COLONOSCOPY N/A 09/30/2024 Re-scope 5 years-Dr. Gibbons HERNIA REPAIR HIATAL HERNIA REPAIR TONSILLECTOMY Social History Tobacco Use Smoking status: Never Smokeless tobacco: Never Vaping Use Vaping status: Never Used Substance Use Topics Alcohol use: No Drug use: No Family History Problem Relation Name Age of Onset Lung cancer Mother smoker Liver cancer Father 70 cholangiocarcinoma Colon cancer Paternal Grandfather 70 Allergies as of 09/30/2025 Review status set to Review Complete by Anita Carr on 09/30/2025 No Known Allergies Outpatient Medications Prior to Visit Medication Sig Dispense Refill albuterol HFA (PROVENTIL HFA) 108 (90 Base) MCG/ACT inhaler Inhale 2 puffs into the lungs every 4 (four) hours as needed for Wheezing or Shortness of Air. 6.7 g 0 budesonide-formoterol (SYMBICORT) 160-4.5 MCG/ACT inhaler Inhale 2 puffs into the lungs 2 (two) times daily. (Patient not taking: Reported on 09/30/2025) 1 each 3 esomeprazole (NEXIUM) 40 MG capsule Take 1 capsule by mouth every morning before breakfast. 90 capsule 3 ferrous sulfate 325 (65 FE) MG tablet Take 1 tablet by mouth daily. 30 tablet 2 phenazopyridine (PYRIDIUM) 200 MG tablet Take 1 tablet by mouth 3 (three) times daily as needed forPain. (Patient not taking: Reported on 09/30/2025.) 6 tablet 0 No facility-administered medications prior to visit. Vitals: 09/30/25 1407 BP: 115/59 BP Location: Right arm Pulse: 69 Resp: 16 Temp: 97.8 ??F (36.6 ??C) TempSrc: Oral SpO2: 100% Weight: 179 lb 2 oz (81.3 kg) Height: 5' 8 (172.7 cm) Body mass index is 27.24 kg/m??. PHYSICAL EXAM: ECOG Performance status: 0 Constitutional: Well-developed, Well-nourished Eyes: Normal conjunctiva and lids, Normal pupils and irises, EOM's intact ENT: Normal appearance of external ears and nose Neck: Supple with normal range of motion Breasts: Right breast - no masses, skin changes, nipple inversion. Left breast - no masses, skin changes, nipple inversion Lymphatic: No cervical, supraclavicular, or axillary adenopathy present Respiratory: Normal respiratory effort, no crackles or wheezes Cardiovascular: Normal Rate, regular rhythm and heart sounds, Gastrointestinal: Non-tender, non-distended, normal bowel sounds, No guarding, No hepatosplenomegaly or masses Musculoskeletal: No clubbing or cyanosis, Normal muscle strength and tone Skin: Warm, normal induration; tightening, No rashes, lesions, or ulcers Neurologic: Alert and oriented x3; person, place and time Normal gait and stance Psychiatric: Normal judgment and insight, Normal recent and remote memory and Normal mood and affect, no distress No results found for this or any previous visit (from the past [address] Abdomen & Pelvis With IV Contrast Without Oral Contrast Result Date: 09/12/2025 REVIEWING YOUR TEST RESULTS IN [facility] IS NOT A SUBSTITUTE FOR DISCUSSING THOSE RESULTS WITH YOUR HEALTH CARE PROVIDER. PLEASE CONTACT YOUR PROVIDER VIA [facility] TO DISCUSS ANY QUESTIONS OR CONCERNS YOU MAY HAVE REGARDING THESE TEST RESULTS. RADIOLOGY REPORT [facility] UNIT/AGE/GENDER: J.ED ER AGE:60 Y SEX:F PATIENT NAME/: ROSIE GARCIA C 1965 UNIT NUMBER: [id number] ACCESSION NUMBER: [id number] CT ABDOMEN AND PELVIS WIV CONTRAST 09/12/2025 1:48 AM HISTORY: Abdominal pain, [...] M.D. <PS><Electronically signed by: Neri Cevallos M.D.> 09/12/202518 [id number] ASSESSMENT: Encounter Diagnosis Name Primary? Fatigue, unspecified type Yes 60 yr/o female with metastatic colon cancer s/p colon resection, lymph node dissection, and liver biopsy on 04/17/2018. 05/14/2018-ongoing: FOLFOX chemotherapy. She was evaluated by Dr. Schaeffer for the oligometastatic disease. After 6 cycles of FOLFOX, the hepatic metastatic disease resolved on imaging and no further surgery was recommended. She completed 12 cycles on 11/22/2018. Metastatic colon cancer with oligometastatic disease to the liver - There has been no evidence of recurrence. Continue surveillance. Colonoscopy repeat every 5 years. At this time she is > 5 yearsout from diagnosis, so surveillance can consist of annual CBC, CMP, and CEA. If any symptoms or changes in labs, further imaging can be obtained. Fatigue- may be prolonged post-viral syndrome. Check UA, TSH, CBC today to further evaluate. Hematuria - f/u with urology for scope Interstitial lung disease - improved PLAN - Colonoscopy q 5 years - CEA, CBC, UA, TSH today - Urology f/u - RTC in 3 months - if improved at that visit, then - Bilateral Screening Mammogram due 11/03/25 Jennifer Hadley MD 09/30/25 [place] [id number] [facility] [address] Dept: [phone] documented in this encounter Plan of Treatment Upcoming Encounters Date Type Department Care Team (Late st Contact Info) Description 12/25/2025 11:00 AM EST [facility] Visit [facility] [address] [facility] [address] [place] [address] Alyssa Bullard MD [address] [facility] [address] [place] [address] 01/05/2026 2:45 PM EST Lab Visit [facility] [address] [place] [address] 01/05/2026 3:00 PM EST Office Visit [facility] [address] [place] [address] Jennifer Hadley MD [address] [address] 09/11/2026 1:30 PM EDT Office Visit [facility] [address] [facility] [address] [place] [address] Hallie Fiore APRN [address] [facility] [address] [place] [address] documented as of this encounter Results * (ABNORMAL) Urinalysis with Reflex (09/30/2025 3:06 PM EST) Color, Urine Colorless 09/30/2025 3:32 PM [facility] ([id number]) Clarity, Urine Clear 09/30/2025 3:32 PM [facility] ([id number]) Specific [place], Urine 1.004(L) 1.005 - 1.030 [arb'U] 09/30/2025 3:32 PM [facility] ([id number]) pH, Urine 6.0 5.0 - 9.0 [pH] 09/30/2025 3:32 PM [facility] ([id number]) Protein, Urine Negative Negative, 10 mg/dL, 15 mg/dL, 20 mg/dL, Trace 09/30/2025 3:32 PM [facility] ([id number]) Glucose, Urine Negative Negative 09/30/2025 3:32 PM [facility] ([id number]) Ketones, Urine Negative Negative 09/30/2025 3:32 PM [facility] ([id number]) Bilirubin, Urine Negative Negative mg/dL 09/30/2025 3:32 PM [facility] ([id number]) Blood, Urine 1+(A) Negative [arb'U] 09/30/2025 3:32 PM [facility] ([id number]) Nitrite, Urine Negative Negative 09/30/2025 3:32 PM [facility] ([id number]) Urobilinogen, Urine Normal Normal 09/30/2025 3:32 PM [facility] ([id number]) Leukocyte Esterase, Urine Negative Negative 09/30/2025 3:32 PM [facility] ([id number]) Reflex Microscopic? 09/30/2025 3:32 PM [facility] ([id number]) Comment:Microscopic performe d Red Blood Cells, Urine 1 0 - 2 [HPF] 09/30/2025 3:32 PM [facility] ([id number]) White Blood Cells, Urine 1 0 - 3 [HPF] 09/30/2025 3:32 PM [facility] ([facility]) Squamous Epithelial Cells, Urine 0 0 - 4 [HPF] 09/30/2025 3:32 PM [facility] ([facility]) Bacteria, Urine None None [HPF] 09/30/2025 3:32 PM [facility] ([facility]) Urine MID-STREAM URINE SPECIMEN / Unknown Non-blood Collection / Unknown 09/30/2025 3:06 PM EST 09/30/2025 3:20 PM EST us Jennifer Hadley MD URINE ORDERABLES Final Result Performing Organization Address City/[facility]/ZIP Co de Phone Number [facility] ([facility]) [address] [place] [address] * Thyroid Stimulating Hormone(TSH) (09/30/2025 3:06 PM EST) Pathologist [facility] Thyroid Stimulating Hormone 2.19 0.35 - 4.94 m[U]/L 09/30/2025 4:20 PM [facility] ([id number]) Blood VENOUS BLOOD SPECIMEN / Unknown Venipuncture / Unknown 09/30/2025 3:06 PM EST 09/30/2025 3:21 PM EST Narrative [facility] ([id number]) - 09/30/2025 4:20 PM EST Biotin does not interfere with this testing methodology. us Jennifer Hadley MD LAB BLOOD ORDERABLES Final Resu lt [facility] ([id number]) [address] [place] [address] * (ABNORMAL) CBC w/Diff (09/30/2025 3:06 PM EST) White Blood Cells 6.93 4.50 - 11.00 10*3/uL 09/30/2025 3:24 PM EST [facility] Comment:WBC not corrected fo r nRBCs if present. Red Blood Cells 4.19 4.00 - 5.20 10*6/uL 09/30/2025 3:24 PM EST [facility] Hemoglobin 11.5(L) 12.0 - 16.0 g/dL 09/30/2025 3:24 PM EST [facility] Hematocrit 37.2 36.0 - 46.0 % 09/30/2025 3:24 PM EST [facility] Mean Corpuscular Volume 88.8 80.0 - 100.0 fL 09/30/2025 3:24 PM EST [facility] Mean Corpuscular Hemoglobin 27.4 26.0 - 34.0 pg 09/30/2025 3:24 PM EST [facility] Mean Corpuscular Hemoglobin Concentration 30.9(L) 31.0 - 37.0 g/dL 09/30/2025 3:24 PM EST [facility] % Red Blood Cell Distribution Width 15.0 12.0 - 16.8 % 09/30/2025 3:24 PM EST [facility] Platelet Count 301 140 - 440 10*3/uL 09/30/2025 3:24 PM EST [facility] Mean Platelet Volume 10.3 8.4 - 12.4 fL 09/30/2025 3:24 PM EST [facility] Instrument Absolute Neutrophil Count 4.27 2.00 - 8.80 10*3/uL 09/30/2025 3:24 PM EST [facility] Comment:This is a preliminar y absolute neutrophil count pending manual testing. Caution should be used when using this value to perform patient care. % Neutrophils 61.7 45.0 - 80.0 % 09/30/2025 3:24 PM EST [facility] % Lymphocytes 26.1 15.0 - 50.0 % 09/30/2025 3:24 PM EST [facility] % Monocytes 6.6 0.0 - 15.0 % 09/30/2025 3:24 PM EST [facility] % Eosinophils 4.9 0.0 - 7.0 % 09/30/2025 3:24 PM EST [facility] % Basophils 0.6 0.0 - 2.0 % 09/30/2025 3:24 PM EST [facility] % Immature Granulocytes 0.1 0.0 - 1.0 % 09/30/2025 3:24 PM EST [facility] Absolute Neutrophil Count 4.27 2.00 - 8.80 10*3/uL 09/30/2025 3:24 PM EST [facility] Absolute Lymphocytes 1.81 0.70 - 5.50 10*3/uL 09/30/2025 3:24 PM EST [facility] Absolute Monocytes 0.46 0.00 - 1.70 10*3/uL 09/30/2025 3:24 PM EST [facility] Absolute Eosinophils 0.34 0.00 - 0.80 10*3/uL 09/30/2025 3:24 PM EST [facility] Absolute Basophils 0.04 0.00 - 0.20 10*3/uL 09/30/2025 3:24 PM EST [facility] Absolute Immature Granulocytes 0.01 0.00 - 0.10 10*3/uL 09/30/2025 3:24 PM EST [facility] Blood VENOUS BLOOD SPECIMEN / Unknown Venipuncture / Unknown 09/30/2025 3:06 PM EST 09/30/2025 3:21 PM EST us Jennifer Hadley MD LAB BLOOD ORDERABLES Final Resu lt [facility] [address] [phone] * CEA (09/30/2025 3:06 PM EST) Carcinoembryonic Antigen <1.8 0.0 - 5.0 ng/mL 10/01/2025 2:08 PM EST [facility] Blood VENOUS BLOOD SPECIMEN / Unknown Venipuncture / Unknown 09/30/2025 3:06 PM EST 09/30/2025 3:21 PM EST Narrative [facility] - 10/01/2025 2:08 PM EST Testing performed on the [employer]. Results obtained with different test methods or kits cannot be used interchangeably. Should not be interpreted as evidence for the presence or absence of malignancy. us Jennifer Hadley MD [facility] Fin al Result [facility] [address] [place], [place] [id number] documented in this encounter Visit Diagnoses Diagnosis Fatigue, unspecified type- Primary documented in this encounter Care Teams Clinical Operations Manager Relationship Specialty Start Date End Date Hallie Fiore APRN [address] [facility] [address] [place] [address] PCP - General Nurse Practitioner Family 09/08/25 documented as of this encounter
--- OUTSIDE RECORDS SUMMARY | 2025-09-30 15:00 | XMS_ITS | Encounter Summary ---
Author Organization [facility] Address [address] [place] [address] Care Team Providers Care Ostomy Rn Name Role Phone Hallie Fiore APRN Primary Care Provider [phone] Reason for Visit * Reason Comments Labs Only Encounter Details Date Type Department Care Team (Late st Contact Info) Description 09/30/2025 3:00 PM EST Lab Visit [facility] [address] [place] [address] Jennifer Hadley MD [address] [facility] [address] [place], [place] [id number] Fatigue, unspecified type Social History Tobacco Use Types Packs/Day Years [...] any time in the past 12 m [facility], were you homeless or living in a nursing home (including now)? No 09/30/2025 [facility] Utilities Answer Date Recorded In the past 12 months has e [employer], gas, oil, or water company threatened to [...] on file documented as of this encounter Functional Status * Are You [...] Khris Rolon RN documented in this encounter Plan of Treatment Upcoming Encounters Date Type Department Care Team (Late st Contact Info) Description 12/25/2025 11:00 AM EST [facility] [address] [address] Alyssa Bullard MD [address] [facility] [address] [place] [address] 01/05/2026 2:45 PM EST Lab Visit [facility] [address] [place] [address] 01/05/2026 3:00 PM EST Office Visit [facility] [address] [place] [address] Jennifer Hadley MD [address] [facility] 2nd [place] [address] 09/11/2026 1:30 PM EDT Office Visit [facility] [address] [facility] [address] [place] [address] Hallie Fiore APRN [address] [facility] [address] [place] [address] documented as of this encounter Procedures Procedure Name Priority Date/Time Associated Diagnosis Comments URINALYSIS WITH REFLEX Routine 09/30/2025 3:06 PM EST Fatigue, unspecified type CBC W/DIFF Routine 09/30/2025 3:06 PM EST Fatigue, unspecified type THYROID STIMULATING HORMONE(TSH) Routine 09/30/2025 3:06 PM EST Fatigue, unspecified type CEA Routine 09/30/2025 3:06 PM EST Fatigue, unspecified type documented in this encounter Results * CEA (09/30/2025 3:06 PM EST) Carcinoembryonic Antigen <1.8 0.0 - 5.0 ng/mL 10/01/2025 2:08 PM EST [facility] Blood VENOUS BLOOD SPECIMEN / Unknown Venipuncture / Unknown 09/30/2025 3:06 PM EST 09/30/2025 3:21 PM EST Narrative [facility] - 10/01/2025 2:08 PM EST Testing performed on the Neurologix. Results obtained with different test methods or kits cannot be used interchangeably. Should not be interpreted as evidence for the presence or absence of malignancy. us Jennifer Hadley MD [facility] Fin al Result [facility] [address] [facility] [address] [place], [place] [id number] * (ABNORMAL) CBC w/Diff (09/30/2025 3:06 PM EST) Pathologist [facility] White Blood Cells 6.93 4.50 - 11.00 10*3/uL 09/30/2025 3:24 PM EST [facility] Comment:WBC not corrected fo r nRBCs if present. Red Blood Cells 4.19 4.00 - 5.20 10*6/uL 09/30/2025 3:24 PM EST [facility] Hemoglobin 11.5(L) 12.0 - 16.0 g/dL 09/30/2025 3:24 PM EST [facility] Hematocrit 37.2 36.0 - 46.0 % 09/30/2025 3:24 PM EST [facility] Mean Corpuscular Volume 88.8 80.0 - 100.0 fL 09/30/2025 3:24 PM EST [facility] Mean Corpuscular Hemoglobin 27.4 26.0 - 34.0 pg 09/30/2025 3:24 PM EST [facility] Mean Corpuscular Hemoglobin Concentration 30.9(L) 31.0 - 37.0 g/dL 09/30/2025 3:24 PM EST [facility] % Red Blood Cell Distribution Width 15.0 12.0 - 16.8 % 09/30/2025 3:24 PM EST [facility] Platelet Count 301 140 - 440 10*3/uL 09/30/2025 3:24 PM EST [facility] Mean Platelet Volume 10.3 8.4 - 12.4 fL 09/30/2025 3:24 PM EST [facility] Instrument Absolute Neutrophil Count 4.27 2.00 - 8.80 10*3/uL 09/30/2025 3:24 PM EST [facility] Comment:This is a preliminar y absolute [...] - 7.0 % 09/30/2025 3:24 PM EST [facility] % Basophils 0.6 0.0 - 2.0 % 09/30/2025 3:24 PM EST [facility] % Immature Granulocytes 0.1 0.0 - 1.0 % 09/30/2025 3:24 PM EST [facility] Absolute Neutrophil Count 4.27 2.00 - 8.80 10*3/uL 09/30/2025 3:24 PM EST [facility] Absolute Lymphocytes 1.81 0.70 - 5.50 10*3/uL 09/30/2025 3:24 PM EST [facility] Absolute Monocytes 0.46 0.00 - 1.70 10*3/uL 09/30/2025 3:24 PM EST [facility] Absolute Eosinophils 0.34 0.00 - 0.80 10*3/uL 09/30/2025 3:24 PM EST [facility] Absolute Basophils 0.04 0.00 - 0.20 10*3/uL 09/30/2025 3:24 PM EST [facility] Absolute Immature Granulocytes 0.01 0.00 - 0.10 10*3/uL 09/30/2025 3:24 PM EST [facility] Blood VENOUS BLOOD SPECIMEN / Unknown Venipuncture / Unknown 09/30/2025 3:06 PM EST 09/30/2025 3:21 PM EST Jennifer Hadley MD LAB BLOOD ORDERABLES Final Resu lt [facility] [address] [phone] * Thyroid Stimulating Hormone(TSH) (09/30/2025 3:06 PM EST) Pathologist [facility] Thyroid Stimulating Hormone 2.19 0.35 - 4.94 m[U]/L 09/30/2025 4:20 PM EST [facility] ([id number]) Blood VENOUS BLOOD SPECIMEN / Unknown Venipuncture / Unknown 09/30/2025 3:06 PM EST 09/30/2025 3:21 PM EST Narrative [facility] ([id number]) - 09/30/2025 4:20 PM EST Biotin does not interfere with this testing methodology. Jennifer Hadley MD LAB BLOOD ORDERABLES Final Resu lt [facility] ([id number]) [address] [place] [address] * (ABNORMAL) Urinalysis with Reflex (09/30/2025 3:06 PM EST) Color, Urine Colorless 09/30/2025 3:32 PM [facility] ([id number]) Clarity, Urine Clear 09/30/2025 3:32 PM [facility] ([id number]) Specific [place], Urine 1.004(L) 1.005 - 1.030 [arb'U] 09/30/2025 3:32 PM [facility] ([id number]) pH, Urine 6.0 5.0 - 9.0 [pH] 09/30/2025 3:32 PM [facility] ([id number]) Protein, Urine Negative Negative, 10 mg/dL, 15 mg/dL, 20 mg/dL, Trace 09/30/2025 3:32 PM [facility] ([id number]) Glucose, Urine Negative Negative 09/30/2025 3:32 PM [facility] ([id number]) Ketones, Urine Negative Negative 09/30/2025 3:32 PM [facility] ([id number]) Bilirubin, Urine Negative Negative mg/dL 09/30/2025 3:32 PM [facility] ([facility]) Blood, Urine 1+(A) Negative [arb'U] 09/30/2025 3:32 PM [facility] ([facility]) Nitrite, Urine Negative Negative 09/30/2025 3:32 PM [facility] ([facility]) Urobilinogen, Urine Normal Normal 09/30/2025 3:32 PM [facility] ([facility]) Leukocyte Esterase, Urine Negative Negative 09/30/2025 3:32 PM [facility] ([facility]) Reflex Microscopic? 09/30/2025 3:32 PM [facility] ([facility]) Comment:Microscopic performe d Red Blood Cells, Urine 1 0 - 2 [HPF] 09/30/2025 3:32 PM [facility] ([facility]) White Blood Cells, Urine 1 0 - 3 [HPF] 09/30/2025 3:32 PM [facility] ([facility]) Squamous Epithelial Cells, Urine 0 0 - 4 [HPF] 09/30/2025 3:32 PM [facility] ([facility]) Bacteria, Urine None None [HPF] 09/30/2025 3:32 PM [facility] ([facility]) Urine MID-STREAM URINE SPECIMEN / Unknown Non-blood Collection / Unknown 09/30/2025 3:06 PM EST 09/30/2025 3:20 PM EST us Jennifer Hadley MD URINE ORDERABLES Final Result [facility] ([facility]) [address] [place] [address] documented in this encounter Visit Diagnoses Diagnosis Fatigue, unspecified type documented in this encounter Care Teams Ostomy Rn Relationship Specialty Start Date End Date Hallie Fiore APRN [address] [address] PCP - General Nurse Practitioner Family 09/08/25 documented as of this encounter
--- OUTSIDE RECORDS SUMMARY | 2025-11-03 10:45 | XMS_ITS | Encounter Summary ---
Author Organization [facility] Address [address] [place] [address] Care Team Providers Care Open Hearth Melter Name Role Phone Hallie Fiore STOCK [employer]S FABRICATOR Primary Care Provider [phone] Reason for Visit * Mammography (Routine) - Authorized Specialty Diagnoses / Procedures Referred By Taisha vásquez Referred To Contact Radiology Diagnoses Encounter for screening mammogram for breast cancer Procedures Mammogram Mann Screening Bilateral Hallie Fiore, STOCK PARTS FABRICATOR [address] [facility] [address] [place] [address] Phone: tel: fax: [facility] [address] [place] [address] Phone: tel: Referral ID Status Reason Start Date Expiration Date V isits Requested Visits Authorized [id number] Authorized 09/08/2025 10/09/2026 1 1 Encounter Details Date Type Department Care Team (Late st Contact Info) Description 11/03/2025 10:45 AM EST Hospital Encounter [facility] - Mammography [address] [facility] [address] [place] [address] Hallie Fiore, STOCK PARTS FABRICATOR [address] [facility] [address] [place] [address] Social History Tobacco Use Types Packs/Day Years [...] any time in the past 12 [facility] were you homeless or living in a correction (including now)? No 09/30/2025 [facility] Utilities Answer Date Recorded In the past 12 months has th e electric, gas, oil, or water company threatened to [...] Author No 07/12/2018 6:21 AM Khris Rolon, RN * Patient's Vision Adequate to Safely Complete Daily Activities Answer Date of Assessment Author Yes 07/12/2018 6:21 AM Khris Rolon, RN * Do You Have Serious Difficulty Walking or Climbing Stairs? Answer Date of Assessment Author Yes 07/12/2018 6:21 AM Khris Rolon, RN * Do You Have Difficulty Dressing or Bathing? Answer Date of Assessment Author No 07/12/2018 6:21 AM Khris Rolon, RN * Because of a Physical, Mental, or Emotional Condition, Do You Have Serious Difficulty Concentrating, Remembering or Making a Decision? Answer Date of Assessment Author No 07/12/2018 6:21 AM EDT Khris Ma RN documented as of this encounter Mental Status * Because of a Physical, Mental or Emotional Problem, Do You Have Difficulty Doing Errands Alone Suchas Visiting a Doctor's Office or Shopping? Answer Entry Date Author Yes 07/12/2018 6:21 AM EDT Khris Ma RN documented in this encounter Plan of Treatment Upcoming Encounters Date Type Department Care Team (Late st Contact Info) Description 12/25/2025 11:00 AM EST [facility] [address] [place] [phone] [place] [address] [place] [phone] 01/05/2026 2:45 PM EST Lab Visit [facility] [address] [place] [address] 01/05/2026 3:00 PM EST Office [facility] [address] [place] [address] Jennifer Hadley MD [address] [phone] 09/11/2026 1:30 PM EDT Office Visit [facility] [address] [facility] [address] [place] [address] Hallie Fiore APRN [address] [facility] [address] [place] [address] Scheduled Orders Name Type Priority Associated Diagnoses Orde r Schedule Mammogram Mann Screening Bilateral Imaging Routine Encounter for screening mammogram for breast cancer Expected: 11/07/2025 (Approximate), Expires: 09/08/2026 documented as of this encounter Visit Diagnoses Not on filedocumented in this encounter Care Teams Open Hearth Melter Relationship Specialty Start Date End Date Fiore, Halliecinthia Ayala APRN [address] [address] PCP - General Nurse Practitioner Family 09/08/25 documented as of this encounter
--- OUTSIDE RECORDS SUMMARY | 2025-11-04 12:45 | XMS_ITS | Clinical Summary ---
Author Organization [facility] Address [address] [place] [address] Care Team Providers Care Mucker Cofferdam Name Role Phone Provider, No Known Primary Care Provider [phone] Allergies No known active allergies Medications esomeprazole (NexIUM) 40 MG capsule Take 40 mg by mouth every morning before breakfast. Active budesonide-formot peter (SYMBICORT) 160-4.5 MCG/ACT inhalerIndication s:Asthma exacerbation Inhale 2 puffs 2 (Two) Times a Day. 10.2 g 6 Active predniSONE (DELTASONE) 20 MG tabletIndications :Asthma exacerbation Take 3 tablets by mouth Daily. 15 tablet 6 Active guaifenesin-codei ne (GUAIFENESIN AC) 100-10 MG/5ML liquidIndications :Viral upper respiratory tract infection Take 5 mL by mouth 3 (Three) Times a Day As Needed for cough. 118 mL 6 Active oseltamivir (TAMIFLU) 75 MG capsuleIndication s:Influenza B Take 1 capsule by mouth 2 (Two) Times a Day. 10 capsule 8 Active Active Problems No known active problems Family History Medical History Relation Name Comments Liver cancer Father Lung cancer Mother Relation Name Status Comments Father Mother Social History Tobacco Use Types Packs/Day Years Used Date Smoking Tobacco: Never Tobacco Cessation:Counseling Given: No Alcohol Use Standard Drinks/Week Comments No 0 (1 standard drink = 0.6 oz pur e alcohol) Abuse Screen Answer Date Recorded Unsafe at Home or Work/School Not on file Feels Threatened by Someone? Not on file 08/2023 Does Anyone Keep You from Co ntacting Others or Doint Things Outside the Home? Not on file 08/22/2023 Physical Sign of Abuse Present Not on file 1 Housing Stability Answer Date Recorded Current Living Arrangements Not on file 08/13 Potentially Unsafe Housing Conditions Not on anibal e 08/22/2023 Family and Community Support Answer Marty e Recorded Help with Day-to-Day Activities Not on file 08/22/2023 Lonely or Isolated Not on file 08/22/2023 Employment Answer Date Recorded Do you want help finding or keeping work or a ji b? Not on file 08/22/2023 Disabilities Answer Date Recorded Concentrating, Remembering, or Making Decisions Difficulty Not on file 08/22/2023 Doing Errands Independently Difficulty Not on fi le 08/22/2023 Education Answer Date Recorded Help with school or training? Not on file Preferred Language Not on file 08/22/2023 Comments No Sex and Gender Information Value Date Recorded Sex Assigned at Not on file Legal Sex Female 11:25 AM EDT Gender Identity Not on file Sexual Orientation Not on file Last Filed Vital Signs Vital Sign Reading Time Taken Comments Blood Pressure 111/68 12/20/2017 8:09 AM EST Pulse 83 12/20/2017 8:09 AM EST Temperature 36.2 C (97.1 F) 12/20/2017 8:09 AM EST Respiratory Rate 16 12/20/2017 8:09 AM EST Oxygen Saturation 100% 12/20/2017 8:09 AM EST Inhaled Oxygen Concentration - - Weight 81.6 kg (180 lb) 12/20/2017 8:09 AM EST Height 172.7 cm (5' 8 ) 12/20/2017 8:09 AM EST Body Mass Index 27.37 12/20/2017 8:09 AM EST Plan of Treatment Health Maintenance Due Date Last Done Comments ANNUAL PHYSICAL 1965 Annual Gynecologic Pelvic and Breast Exam 1965 HEPATITIS C SCREENING 1967 TDAP/TD VACCINES (1 - Tdap) 1986 MAMMOGRAM 2007 COLOGUARD 02/15/2012 COLON CANCER SCREENING 5 YEAR SIGMOIDOSCOPY 02/15/2012 COLONOSCOPY 02/15/2012 COLORECTAL CANCER SCREENING 02/15/2012 CT COLONOGRAPHY 02/15/2012 FECAL OCCULT BLOOD TEST 02/15/2012 FIT Testing (1 year) 02/15/2012 Pneumococcal Vaccine 50+ (1 of 1 - PCV) 2017 ZOSTER VACCINE (1 of 2) 2017 INFLUENZA VACCINE 06/13/2025 Insurance [facility] Care Teams Mucker Cofferdam Relationship Specialty Start Date End Date Provider, [place] [address] PCP - General 04/27/16
--- OUTSIDE RECORDS SUMMARY | 2025-11-04 12:45 | XMS_ITS ---
Author Organization [facility] Address [address] [place] [address] Care Team Providers Care Rolling Machine Operator Automatic Name Role Phone Hallie Fiore APRN Primary Care Provider [phone]- [phone] Active Problems Problem Noted Date Diagnosed Date Annual physical exam 09/08/2025 Assessment & Plan (09/08/2025 2:22 PM EDT): Labs ordered today (if not obtained recently). Most recent lab work reviewed (if available). Health Maintenance reviewed. Tobacco Use reviewed. Anticipatory guidance, risk factor reduction and counseling placed in AVS. Yearly blood work to monitor health status, including kidney, liver, and electrolytes, cholesterol, and A1c. Return in about 1 year for Annual physical & fasting labs. UTI symptoms 09/08/2025 Assessment & Plan (09/08/2025 2:25 PM EDT): Acute, unstable, with systemic symptoms, and Undiagnosed [...] 4 hours, urinate after sexual activity, wipe [id number], bladder training techniques to completely empty bladder [...] entire course of antibiotic if prescribed to prevent bacterial resistance.. Seek medical assistance if new symptoms, fever > 100.4 F, chills, CP, SOB, new confusion, significant pain, significant nausea / vomiting, new back pain, hematuria, or other concerning signs / symptoms. Follow up PRN. Encounter for screening colonoscopy 05/31/2024 Personal history of colon cancer 05/31/2024 Assessment & Plan (09/08/2025 2:23 PM EDT): Chronic and controlled / stable (at goal) Tx: Continue F/U w/ oncology for monitoring & management. Continue to monitor symptoms Follow up routinely w/ oncology. 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 Past Treatment and Therapy Plans ONCOLOGY TREATMENT Plan Name Start Date Discontinue Date Treatment Medications Discontinue Reason Plan Provider Cycles OXALIplatin / leucovorin / 5-fluorourac il 05/14/20 18 12/12/2018 fluorouracil (ADRUCIL)fluorouracil (ADRUCIL) chemo infusion - for home infusionsFOSaprepitant (EMEND) IVPBleucovorin IV infusionmethylPREDNISolone sodium succinate (SOLU-Medrol)ondansetron (ZOFRAN)OXALIplatin (ELOXATIN) chemo infusionpalonosetron (ALOXI) Therapy Complete Jennifer Hadley MD 12 of 12 cycles started Treatment Summaries Colon cancer metastasized to liver* Cancer Treatment Summary [facility] General Information Patient name Naila Patel Social security number [phone] Phone number [phone] (home) Date of 1965 Age 54 yr/o Support contact Extended Emergency Contact Information Primary Emergency Contact: Andreas Patel [facility] Relation: Spouse Care Team Oncologist(s) Jennifer Hadley MD Surgeon(s) Burak Gibbons MD Radiation Oncologist(s) No care state farm agent team member to display Primary Care Physician None, Physician, None Cancer Diagnosis Information Diagnosis Colon cancer metastasized to liver (CMS/HCC) Age of diagnosis 53 yr/o Diagnosis date 04/16/2018 Staging information Colon: Ascending Staging Method: AJCC 8th Edition - Clinical: Stage GEORGINA (Tx, N0, M1a) - Pathologic: Stage GEORGINA (pT3, pN1b(01/03), pM1a) Additional Staging Information 04/16/2018 at [facility] - CT Abdomen, Pelvis; Likely mass of ascending colon with marked stool distention of cecum. Distal ileal bowel loops are fluid distended. The findings suggest partial colonic obstruction. 2 centimeter low-attenuation lesion at inferior margin of right lower lobe of liver, suspicious forhepatic metastatic disease. 04/22/2018 at [facility] - CT Chest: No definitive metastatic disease of the chest. 08/06/2018 at [facility] - CT Liver, Abdomen, Pelvis: No residual hepatic metastasis 09/09/2019 at [facility] - CT Chest, Abdomen, Pelvis: No evidence for metastatic disease in the chest. No evidence of recurrent or metastatic disease in the abdomen or pelvis. Surgery/Procedures performed 04/17/2018 at [facility] - Right colectomy with liver biopsy Cancer Treatment Summary Name of regimen OXALIplatin / leucovorin / 5-fluorouracil Treatment Plan Provider Jennifer Hadley MD Treatment Plan Goal Curative Clinical Trial [This plan is not part of a research study] Treatment Plan Status Inactive Start date 05/14/2018 Stop date 12/12/2018 Discontinue date 12/12/2018 Reason for stopping treatment Therapy Complete Treatment Plan Weight Weight type: Documented (effective on 11/28/2018), 72.3 kg (entered on 11/28/2018), 172.7 cm (entered on 11/28/2018), BSA 1.86 m2 Chemotherapy Drug Summary fluorouracil (ADRUCIL) injection 784 mg, 400 mg/m2 = 784 mg, Intravenous, Once, 5 of 5 cycles Administration: 784 mg (05/14/2018), 784 mg (05/28/2018), 784 mg (06/19/2018), 784 mg (07/02/2018) leucovorin 784 mg in dextrose 5 % 250 mL IV infusion, 400 mg/m2 = 784 mg, Intravenous, Once, 8 of 8cycles Administration: 784 mg (05/14/2018), 784 mg (05/28/2018), 784 mg (06/19/2018), 784 mg (07/02/2018), 784 mg (07/25/2018), 784 mg (08/08/2018), 784 mg (09/04/2018), 784 mg (09/19/2018) OXALIplatin (ELOXATIN) 167 mg in dextrose 5 % 250 mL chemo infusion, 85 mg/m2 = 167 mg, Intravenous, Once, 9 of 9 cycles Dose modification: 76.5 mg/m2 (original dose 85 mg/m2, Cycle 6, Reason: Other (See Comment), Comment: Colitis), 65 mg/m2 (original dose 85 mg/m2, Cycle 7, Reason: Toxicity/Complication) Administration: 167 mg (05/14/2018), 167 mg (05/28/2018), 167 mg (06/19/2018), 167 mg (07/02/2018), 150 mg (07/25/2018), 150 mg (08/08/2018), 127 mg (09/04/2018), 127 mg (09/19/2018), 127 mg (10/17/2018) fluorouracil (ADRUCIL) 4,700 mg in dextrose 5 % 44 mL chemo infusion, 2,398 mg/m2 = 4,700 mg (100 %of original dose 2,398 mg/m2), Home IV (Cont IV Chemo), Once, 12 of 12 cycles Dose modification: 2,398 mg/m2 (original dose 2,398 mg/m2, Cycle 1, Reason: Dose Rounded Per Policy), 2,365.5 mg/m2 (original dose 2,398 mg/m2, Cycle 11, Reason: Other (See Comment), Comment: Dose based on new weight and rounded per policy) Administration: 4,700 mg (05/14/2018), 4,700 mg (05/28/2018), 4,700 mg (06/19/2018), 4,700 mg (07/02/2018), 4,700 mg (07/25/2018), 4,700 mg (08/08/2018), 4,700 mg (09/04/2018), 4,700 mg (09/19/2018), 4,700 mg(10/17/2018), 4,700 mg (11/14/2018), 4,400 mg (11/28/2018), 4,400 mg (12/12/2018) Cumulative Dose Lifetime Dose Tracking No doses have been documented on this patient for the following tracked chemicals: Doxorubicin, Epirubicin, Idarubicin, Daunorubicin, Mitoxantrone, Bleomycin Please note the patient may not have received all chemotherapy doses at this facility. Any chemotherapy doses received outside this facility or prior to January 2013 may not be represented in the cumulative dose. Additional Treatments Radiation therapy No history exists. BMT/Stem cell transplant No history exists. Effects of Treatment Best Response to Treatment complete Treatment-related hospitalization required? No history exists. Serious toxicities during treatment No history exists. Ongoing toxicities at completion of treatment? No Disease Surveillance: Hepatobiliary: Hepatocellular Carcinoma Intervention 1 year 2 year 3 year 4 year 5 year 6+ AFP Every 3-6 months Every 6-12 months Imaging: Multiphasic ABD/pelvic MRI or multi-phase CT scan Every 3-6 months Every 6-12 months *Based on Version 3.2019 NCCN Guidelines for Hepatobiliary Cancers Follow Up Care What is Follow-up Care? Once you have finished your cancer treatment, you should receive a follow-up cancer care plan and treatment summary. Your treatment summary is a record of the cancer treatment you received. Follow-upcare means seeing a doctor for regular medical checkups. Your follow-up care depends on the type ofcancer and type of treatment you had for that cancer. At the follow up visits, your doctor will look for side effects from treatment and check if your cancer has returned or spread to another part ofyour body. Worrying about the cancer coming back is normal especially during the first year after treatment. Just because you have certain symptoms doesn???t always mean the cancer has come back. Symptoms can be due to other problems that need to be addressed. Which Doctor Should I See and How Often? For follow-up cancer care, this may be the same doctor who provided your cancer treatment. For regular medical care, you may decide to see your main provider, such as a family doctor. Always tell anynew doctors you see about your history of cancer and the treatment you received. They may not know about your cancer unless you tell them. Many survivors want to find ways to reduce chances of their cancer coming back. Such as: Quit smoking Exercise and stay active Cut down on how much alcohol you drink Talking with your doctor Eat well Research has shown that all of these changes can reduce your risk of certain cancers. It is important to be able to talk openly with your doctor. At each visit, mention any health issues you are having such as: New symptoms Pain that troubles you Physical problems that get in the way of your daily life or that bothers you, such as fatigue, trouble sleeping, sexual problems, or weight gain or loss. Other health problems you have, such as heart disease, diabetes or arthritis Medicines, vitamins or herbs you are taking and other treatments you are using. Emotional problems, such as anxiety or depression, that you may have now or that you???ve had in the past. Changes in your family???s medical history, such as relatives with cancer. Your Family???s Cancer Risk You may worry that having cancer might increase your children???s risk of developing cancer. It is important to know that most cancer is not passed down through families. Talking with a cancer genetic counselor can help answer your questions and those of your family. Genetic testing can determine whether the cancers that occur in your family are due to genes or to other factors. He or she can also help you and your doctor decide on the medical care that you and yourfamily might need if a genetic link is found. Ways To Manage Physical Changes It???s important to remember that no two people are alike, so you may experience changes that are very different from someone else???s, even if that person had the same type of cancer and treatment. Some of the most common problems that people report are: Fatigue Mouth or teeth problems Memory and concentration changes Changes in weight and eating habits Pain Trouble swallowing Nervous system changes (neuropathy) Bladder or bowel control problems Lymphedema or swelling Menopause symptoms Fatigue Some cancer survivors report that they still feel tired or worn out. Fatigue is one of the most common complaints during the first year of recovery. Talk with your doctor or nurse about what may be causing your fatigue and what can be done about it. Memory and Concentration Changes This is sometimes called ???chemo-brain.?? This can lead to problems paying attention, finding theright words or remembering new things. These effects can begin soon after treatment ends, or they may not appear until much later. They don???t always go away. Your doctor can help you with memory and concentration problems. Talk with him or her if: You are still having memory and thinking problems. You think a medicine you are taking could be causing or adding to your problem. You think you suffer from depression or anxiety. You are going through menopause. Pain Some people may have pain after treatment, while others do not. Types of pain you may feel after cancer treatment include: Pain or numbness in the hands and feet due to injured nerves. Chemotherapy or surgery can damage nerves, which can cause severe pain. Painful scars from surgery Pain in a missing limb or breast. While doctors don???t know why this pain occurs, it is real. Thisis sometimes called phantom pain. If you find that you still have pain after treatment ends, your doctor can help find the source of your pain and get relief. Nervous System Changes (Neuropathy) Sometimes cancer treatment can cause damage to your nervous system. This is called neuropathy. Mostpeople first notice symptoms in their hands and feet, most often starting with their fingertips andtoes. Common symptoms include tingling, burning, weakness or numbness in your hands or feet; sudden, sharp, stabbing or electric shock pain sensations; loss of sensation or touch; loss of balance or difficulty walking; clumsiness; trouble picking up objects or buttoning clothes; hearing loss; jaw pain; constipation; and being more-or less- sensitive to heat and cold. Symptoms can start when you begin chemotherapy or after treatment. If they do, tell your health care team right way. Lymphedema or Swelling Lymphedema is a swelling of a part of the body caused by the buildup of lymph fluids. It often happens in the arm, leg, face or neck. It can be caused by cancer or its treatment. Your doctor may be able to help you find ways to prevent or relieve lymphedema. Mouth or Teeth Problems Many people who have been treated for cancer develop problems with their mouth or teeth. These problems may start during treatment or develop months or years after treatment has ended. Some problems go away after treatment; others last a long time, while some may never go away. If you find that problems persist after cancer treatment ends, talk with your doctor about possible causes and ways to control mouth pain. See your dentist after you are done with treatment. Ask how often you should have checkups and waysto take care of your mouth and teeth. Changes in Weight and Eating Habits Some survivors who have had certain types of chemotherapy or medicines have problems with weight gain. Breast cancer survivors who have had certain types of chemotherapy gain weight in a different way- they lose muscle and gain fat tissue. Speak with your doctor about changes in your weight and if you have a change in your appetite. Some people who have had radiation therapy or chemotherapy may find it hard to eat because they have trouble swallowing. Discuss this with your doctor. He or she may refer you to a deputy k 9 or other healthcare provider for additional treatment. Bladder or Bowel Control Problems It is very important to tell your doctor about any changes in your bladder or bowel habits. Tell your doctor if you have constipation or diarrhea. Your doctor may be able to help treat these problems. Menopause Symptoms After chemotherapy, some women stop getting their period every month, or stop getting them altogether. Ask your doctor if you still need to use control, even if you are not getting your period. Body Changes and Intimacy Some body changes are short-term and others will last forever. Changes in the way you look can also be hard for your loved ones, which can be hard on you. Parentsand grandparents often worry about how they look to a child or grandchild. Discuss these concerns with your doctor. Resources are available to assist in discussing cancer with children of all ages. You can contact your local [place] [employer] for available resources. Changes in Sex Life You may have changes in your sex life after cancer treatment. Depending on the cancer you had theseproblems may be short-term or long-term. You may have sexual problems, fertility concerns and questions about control after cancer treatment. These are often caused by changes to your body-fromsurgery, chemotherapy, radiation or the effect of certain medicines. Sometimes emotional issues canbe the cause of sexual problems. Your doctor may be able to help you deal with these problems, but he or she may not bring up the subject. You may have to mention it yourself. Your Feelings Cancer treatment can also affect the way you feel, think and do the things you like to do. Having cancer can change relationships in your life. It???s normal to have many different feelings after treatment ends. Just as you need to take care of your body after treatment, you need to take care of your emotions. After treatment you may feel angry, tense or sad. When you were diagnosed you may have put concerns such as family, work or finances aside or someone else took care of these for you. Now that treatment is over you may again be responsible for these things. It is very important to speak openly with your doctor about the feelings you are having. If your doctor thinks that you suffer from depression, he or she may treat it or refer you to someone that specializes in this care. Joining a Support Group Support groups can have many benefits. Even though you may receive support from friends and family,the number one reason people join a support group is to be with others who have had similar cancer experiences. Some research shows that joining a support group improves quality of life and enhances survival. Financial Matters and Legal Documents The financial challenges that people with cancer and their families face are very real. During an illness, you and your family may have found it hard to find the time or energy to review your options. For options related to medical bills you may want to talk with a hospital financial counselor or public health social worker. If you do not have an advanced directive, you may want to consider it. Advanced directives are legal documents that let a person decided important issues ahead of time, including how much treatment to receive and who should make decisions if you cannot. Having an advanced directive helps ensure that you get the treatment you want. A truck driver helper does not always need to be present when you fill out these papers. However, a public health social worker may be needed. Each state has its own laws about advance directives. Check with your truck driver helper or public health social worker about the laws in your state. Advance directives: A living will A durable power of commonwealth attorney Other legal papers that are not part of the advance directives: A will Power of commonwealth attorney A trust Information in this document was obtained from the National Cancer [place] Facing Forward: Life after Cancer Treatment. For the full document, please visit http://www.cancer.gov/cancertopics/coping/fdeb-vviuj-zsljghqpa or contact the [facility] Resource Center at [phone] ([phone]) for a copy. Patient Information and Support Websites [facility] www.federal correction institution hospitalAzuro.org Chemotherapy Education and Information www.chemocare.Weizoom [facility] www.Miprotovirtua voorheesAutobook Now.Weizoom/cancer Cure Today [place] www.curetoday.com [place] Association for Cancer Research (AACR) www.aacr.org Hope for Two: The with Cancer Network www.withcancer.org [place] Cancer [employer] www.cancer.org Hospice and Palliative Care www.nhpco.org [place] Pain Foundation www.painfoundation.org I???m Too Young for This! Cancer Foundation http://stupidcancer.Weizoom [place] Society for Radiation Oncology www.lory.org Journal of the NCI www.cancer.gov [place] Society of Clinical Oncology (ASCO) www.asco.org LIVESTRONG www.livestrong.org Association of Cancer Online Resources www.acor.org Look Good...Feel Better (LGFB) www.lookgoodfeelbetter.org Association of Community Cancer Centers (ACCC) www.accc-cancer.org MyOncofertility.org www.myoncofertility.org Blood and Marrow Transplant Information Network www.bmtinfonet.org National Cancer [place] (NCI) www.cancer.gov Cancer Care www.cancercare.org National Marrow Donor Program www.marrow.org Cancer Education www.cancereducation.com National Library of Medicine www.nlm.nih.gov Cancer Hope Network www.cancerhopenetwork.org OncoLink www.oncolink.org Cancer Symptoms www.cancersymptoms.org Oncology Tools: FDA Site www.fda.gov/cder/cancer CaringBridge www.caringbridge.org People Living with Cancer www.cancer.net Centers for Disease Control and Prevention (CDC) www.cdc.gov [facility] www.DVDPlay.com
--- OUTSIDE RECORDS SUMMARY | 2025-11-04 12:46 | XMS_ITS | Encounter Summary ---
Author Organization [facility] Address [address] [place] [address] Care Team Providers Care Pumping Station Supervisor Name Role Phone FioreHallie koenig Jamie SHERIE Primary Care Provider [phone] Encounter Details Date Type Department Care Team (Late st Contact Info) Description 10/01/2025 Results Follow-Up [facility] [address] [place] [address] Zeferino Jason APRN [address] [facility] [address] [place], [place] [id number] Urinalysis with Reflex, Thyroid Stimulating Hormone(TSH), CBC w/Diff, CEA Social History Tobacco Use Types Packs/Day Years [...] any time in the past 12 m [facility], were you homeless or living in a snf (including now)? No 09/30/2025 [facility] Utilities Answer Date Recorded In the past 12 months has e [employer], gas, oil, or water company threatened to [...] Office Visit [facility] [address] [address] Alyssa Bullard MD [address] [facility] [address] [place] [address] 01/05/2026 2:45 PM EST Lab Visit [facility] [address] [place] [address] 01/05/2026 3:00 PM EST Office Visit [facility] [address] [place] [address] Jennifer Hadley MD [address] [address] 09/11/2026 1:30 PM EDT Office Visit [facility] [address] [facility] [address] [place] [address] Hallie Fiore, SHERIE [address] [facility] [address] [place] [address] documented as of this encounter Visit Diagnoses Not on filedocumented in this encounter Care Teams Pumping Station Supervisor Relationship Specialty Start Date End Date Hallie Fiore, SOLUTIONS ARCHITECT CONSULTANT [address] [facility] [address] [place] [address] PCP - General Nurse Practitioner Family 09/08/25 documented as of this encounter
--- OUTSIDE RECORDS SUMMARY | 2025-11-04 12:46 | XMS_ITS | Encounter Summary ---
Author Organization [facility] [address] [place] [address] Care Team Providers Care Special Effects Designer Name Role Phone None, Physician Primary Care Provider Hallie Meyer MACHINE CLERICAL VERIFIER Primary Care Provider [phone] Encounter Details Date Type Department Care Team (Latest Contact Info) Description 09/05/2025 Results Follow-Up [address] [place] [address] Glendy Curran, MACHINE CLERICAL VERIFIER [address] [facility] [address] [facility] Admin [place], [place] [id number] POCT Urinalysis W/O Micro, Culture,Urine Social History Tobacco Use Types Packs/Day Years [...] Visit [facility] [address] [facility] [address] [place] [address] Alyssa Bullard MD [address] [facility] [address] [place] [address] 01/05/2026 2:45 PM EST Lab Visit [facility] [address] [place] [address] 01/05/2026 3:00 PM EST Office Visit [facility] [address] [place] [address] Jennifer Hadley MD [address] [id number] 09/11/2026 1:30 PM EDT Office Visit [facility] [address] [facility] [address] [place] [address] Hallie Fiore APRN [address] [facility] [address] [place] [address] documented as of this encounter Visit Diagnoses Not on filedocumented in this encounter Care Teams Special Effects Designer Relationship Specialty Start Date End Date None, Physician PCP - General 09/04/19 09/07/25 Hallie Fiore APRN [address] [address] PCP - General Nurse Practitioner Family 09/08/25 documented as of this encounter
--- OUTSIDE RECORDS SUMMARY | 2025-11-04 12:46 | XMS_ITS | Clinical Summary ---
Author Organization [facility] Address [address] [place] [address] Care Team Providers Care Coat Operator Name Role Phone Hallie Fiore APRN Primary Care Provider Allergies No known active allergies Medications esomeprazole (NEXIUM) 40 MG capsule Take 1 capsule by mouth every morning before breakfast. 90 capsule 3 8 Active ferrous sulfate 325 (65 FE) MG tablet Take 1 tablet by mouth daily. 30 tablet 2 9 Active budesonide-form oterol (SYMBICORT) 160-4.5 MCG/ACT inhaler Inhale 2 puffs into the lungs 2 (two) times daily. 1 each 3 3 Active Additional Information Patient not taking.Reported on 09/30/2025 albuterol HFA (PROVENTIL HFA) 108 (90 Base) MCG/ACT inhaler Inhale 2 puffs into the lungs every 4 (four) hours as needed for Wheezing or Shortness of Air. 6.7 g 3 Active phenazopyridine (PYRIDIUM) 200 MG tablet Take 1 tablet by mouth 3 (three) times daily as needed for Pain. 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/04/20 19 Colitis 07/12/2018 Elevated LFTs 07/12/2018 Colon cancer metastasized to liver 04/30/2018 Colon cancer 04/30/2018 Overview (04/30/2018): Added automatically from request for surgery [id number] Mass of colon 04/16/2018 Encounters Date Type Department Care Team Description 11/03/2025 10:45 AM EST Hospital Encounter [facility] [place] - Mammography [address] [facility] [address] [place] [address] Hallie Fiore, SHERIE 10/01/2025 Results Follow-Up [facility] [address] [place] [address] Zeferino Jason, STERILE PRODUCTS PROCESSOR Urinalysis with Reflex, Thyroid Stimulating Hormone(TSH), CBC w/Diff, CEA 09/30/2025 3:00 PM EST Lab Visit [facility] [address] [place] [address] Jennifer Hadley MD Fatigue, unspecified type 09/30/2025 2:15 PM EST Office Visit [facility] [address] [place] [address] Jennifer Hadley MD Fatigue, unspecified type (Primary Dx) 09/11/2025 9:46 PM EDT - 09/12/2025 2:30 AM EDT Emergency [facility] Emergency Department [address] [place] [address] Alex Malik MD Urinary tract infection with hematuria, site unspecified (Primary Dx); Abdominal pain, unspecified abdominal location Discharge Disposition: Home or Self Care 09/08/2025 1:30 PM EDT Office Visit [facility] [address] [facility] [address] [place] [address] Hallie Fiore, STERILE PRODUCTS PROCESSOR Annual physical exam (Primary Dx); Screening for [...] Encounter for screening mammogram for breast cancer 09/08/2025 Results Follow-Up [facility] [address] [address] Hallie iFore APRN POCT Urinalysis W/O Micro, Urinalysis, Culture,Urine 09/05/2025 4:30 PM EDT Office Visit [address] [address] Glendy Curran APRN Leukocytes in urine (Primary Dx); Urinary frequency 09/05/2025 Results Follow-Up [address] [address] Glendy Curran APRN POCT Urinalysis W/O Micro, Culture,Urine from Last 3 Months Immunizations Immunization Administration Dates Next Due COVID-19 Pfizer PURPLE Ages 12 and Older 07/18/2021,01/09/2021,12/18/2020 Influenza Vaccine Quadrivalent Pf 09/26/2022, Influenza, Unspecified 08/13/2025,2020,09/13/2019,2017 Family History Medical History Relation Comments Liver cancer Father cholangiocarcino ma Lung cancer Mother smoker Colon cancer Paternal Grandfather Relation Status Comments Father Mother Paternal Grandfather Social History Tobacco Use Types Packs/Day Years [...] any time in the past 12 m [facility], were you homeless or living in a alf (including now)? No 09/30/2025 [facility] Utilities Answer Date Recorded In the [...] file Not on file Not on file Last Filed Vital Signs [...] Mass Index 27.24 09/30/2025 2:07 PM EST Plan of Treatment Upcoming Encounters Date Type Department Care Team (Late st Contact Info) Description 12/25/2025 11:00 AM EST [facility] Visit [facility] [address] [facility] [address] [place] [address] Alyssa Bullard MD [address] [facility] [address] [place] [address] 01/05/2026 2:45 PM EST Lab Visit [facility] [address] [place] [address] 01/05/2026 3:00 PM EST Office Visit [facility] [address] [place] [address] Jennifer Hadley MD [address] [address] 09/11/2026 1:30 PM EDT Office Visit [facility] [address] [facility] [address] [place] [address] Hallie Fiore, SHERIE [address] [facility] [address] [place] [address] Health Maintenance Due Date Last Done Comments CT Colonography 1965 FIT-DNA 1967 FIT 1965 FOBT 1965 Sigmoidoscopy 1965 Hepatitis A (HepA) Vaccine (1 of 2 - Risk 2-dose series) 1986 Hepatitis B (HepB) Vaccine (1 of 3 - 19+ 3-dose series) 1986 Tdap/Td Vaccine >11 yo (1 - Tdap) 1986 Cervical Cancer Screening 02/15/1988 RSV 50+ and (1 - Risk 50-74 years 1-dose series) 2017 Shingles (Shingrix) (1 of 2) 2017 Breast Cancer Screening 09/30/2026 09/17/2020 Post poned from 09/17/2022 (Followed by specialist; discussed need to update) Colonoscopy 09/30/2029 09/30/2024 Colorectal Cancer Screening 09/30/2029 Pneumococcal Vaccines >50 yo Completed 05/20/2022 Influenza Vaccine Completed 08/13/2025, , 09/06/2021, Additional history exists Annual SDOH Screening Completed 09/30/2025 Haemophilus Influenzae Type B (Hib) Vaccine Aged Out No longer eligible based on patient's age to complete this topic Meningococcal ACWY Aged Out No longer eligible based on patient's age to complete this topic Polio (IPV) Aged Out No longer eligi ble based on patient's age to complete this topic Rotavirus (RV) Vaccine Aged Out No lo nger eligible based on patient's age to complete this topic Medical Devices Implanted Type Area Client Relations Representative Device Identifier Shelf Expiration Date Model / Serial / Lot Port Bioflo 8f Plst [id number] - [id number] Implanted:Qty: 1 on 05/08/2018 by uBrak Gibbons MD at [facility] Valves and Ports Right: Chest ANGIODYNAMICS 11/12/2020 [id number] / / [id number] Procedures Procedure Name Priority Date/Time Associated Diagnosis Comments CEA Routine 09/30/2025 3:06 PM EST Fatigue, unspecified type CBC W/DIFF Routine 09/30/2025 3:06 PM EST Fatigue, unspecified type THYROID STIMULATING HORMONE(TSH) Routine 09/30/2025 3:06 PM EST Fatigue, unspecified type URINALYSIS WITH REFLEX Routine 3:06 PM EST Fatigue, unspecified type CT ABDOMEN & PELVIS W IV CONTRAST STAT 09/12/2025 12:05 AM EDT URINALYSIS WITH REFLEX STAT 10:26 PM EDT LIPASE STAT 09/11/2025 10:26 PM EDT COMPREHENSIVE METABOLIC PANEL (CMP) STAT 09/11/2025 10:26 PM EDT CBC W/DIFF STAT 09/11/2025 10:26 PM EDT CULTURE, URINE Routine 09/08/2025 1:43 PM EDT UTI symptoms POCT URINALYSIS W/O MICRO Routine 09/08/2025 1:42 PM EDT UTI symptoms URINALYSIS Routine 09/08/2025 1:42 PM EDT UTI symptoms Hematuria, unspecified type CULTURE, URINE Routine 09/05/2025 5:49 PM EDT Urinary frequency Leukocytes in urine POCT URINALYSIS W/O MICRO Routine 09/05/2025 4:47 PM EDT Urinary frequency MAMMOGRAM MANN SCREENING BILATERAL Routine 09/17/2020 11:47 AM EST Breast cancer screening by mammogram from Last 3 Months or Most Recently Relevant to Health Maintenance Results * (ABNORMAL) Urinalysis with Reflex (09/30/2025 3:06 PM EST) Only the most recent of2 resultswithin the time period is included. Color, Urine Colorless 09/30/2025 3:32 PM [facility] ([id number]) Clarity, Urine Clear 09/30/2025 3:32 PM [facility] ([id number]) Specific [place], Urine 1.004(L) 1.005 - 1.030 [arb'U] 09/30/2025 3:32 PM [facility] ([id number]) pH, Urine 6.0 5.0 - 9.0 [pH] 09/30/2025 3:32 PM [facility] ([id number]) Protein, Urine Negative Negative, 10 mg/dL, 15 mg/dL, 20 mg/dL, Trace 09/30/2025 3:32 PM [facility] (53017) Glucose, Urine Negative Negative 09/30/2025 3:32 PM [facility] (23053) Ketones, Urine Negative Negative 09/30/2025 3:32 PM [facility] (50775) Bilirubin, Urine Negative Negative mg/dL 09/30/2025 3:32 PM [facility] ([id number]) Blood, Urine 1+(A) Negative [arb'U] 09/30/2025 3:32 PM [facility] ([facility]) Nitrite, Urine Negative Negative 09/30/2025 3:32 PM [facility] ([id number]) Urobilinogen, Urine Normal Normal 09/30/2025 3:32 PM [facility] ([facility]) Leukocyte Esterase, Urine Negative Negative 09/30/2025 3:32 PM [facility] ([facility]) Reflex Microscopic? 09/30/2025 3:32 PM [facility] ([facility]) Comment:Microscopic performe d Red Blood Cells, Urine 1 0 - 2 [HPF] 09/30/2025 3:32 PM [facility] ([facility]) White Blood Cells, Urine 1 0 - 3 [HPF] 09/30/2025 3:32 PM [facility] ([facility]) Squamous Epithelial Cells, Urine 0 0 - 4 [HPF] 09/30/2025 3:32 PM [facility] ([facility]) Bacteria, Urine None None [HPF] 09/30/2025 3:32 PM [facility] ([facility]) Urine MID-STREAM URINE SPECIMEN / Unknown Non-blood Collection / Unknown 09/30/2025 3:06 PM EST 09/30/2025 3:20 PM EST us Jennifer Hadley MD URINE ORDERABLES Final Result [facility] ([facility]) [address] [place] [address] * (ABNORMAL) CBC w/Diff (09/30/2025 3:06 PM EST) Only the most recent of2 resultswithin the time period is included. White Blood Cells 6.93 4.50 - 11.00 10*3/uL 09/30/2025 3:24 PM [facility] NCI Comment:WBC not corrected fo r nRBCs if present. Red Blood Cells 4.19 4.00 - 5.20 10*6/uL 09/30/2025 3:24 PM EST [facility] Hemoglobin 11.5(L) 12.0 - 16.0 g/dL 09/30/2025 3:24 PM EST [facility] Hematocrit 37.2 36.0 - 46.0 % 09/30/2025 3:24 PM EST [facility] Mean Corpuscular Volume 88.8 80.0 - [...] - 440 10*3/uL 09/30/2025 3:24 PM EST [facility] Mean Platelet Volume 10.3 8.4 - 12.4 fL 09/30/2025 3:24 PM EST [facility] Instrument Absolute Neutrophil Count 4.27 2.00 - 8.80 10*3/uL 09/30/2025 3:24 PM EST [facility] Comment:This is a preliminar y absolute neutrophil count pending manual testing. Caution should be used when using this value to perform patient care. % Neutrophils 61.7 45.0 - 80.0 % 09/30/2025 3:24 PM EST [facility] % Lymphocytes 26.1 15.0 - 50.0 % 09/30/2025 3:24 PM EST [facility] % Monocytes 6.6 0.0 - 15.0 % 09/30/2025 3:24 PM EST [facility] % Eosinophils 4.9 0.0 - 7.0 % 09/30/2025 3:24 PM EST [facility] % Basophils 0.6 0.0 - 2.0 % 09/30/2025 3:24 PM EST [facility] % Immature Granulocytes 0.1 0.0 - 1.0 % 09/30/2025 3:24 PM EST [facility] Absolute Neutrophil Count 4.27 2.00 - 8.80 10*3/uL 09/30/2025 3:24 PM EST [facility] Absolute Lymphocytes 1.81 0.70 - 5.50 10*3/uL 09/30/2025 3:24 PM EST [facility] Absolute Monocytes 0.46 0.00 - 1.70 10*3/uL 09/30/2025 3:24 PM EST [facility] Absolute Eosinophils 0.34 0.00 - 0.80 10*3/uL 09/30/2025 3:24 PM EST [facility] Absolute Basophils 0.04 0.00 - 0.20 10*3/uL 09/30/2025 3:24 PM EST [facility] Absolute Immature Granulocytes 0.01 0.00 - 0.10 10*3/uL 09/30/2025 3:24 PM EST [facility] Blood VENOUS BLOOD SPECIMEN / Unknown Venipuncture / Unknown 09/30/2025 3:06 PM EST 09/30/2025 3:21 PM EST us Jennifer Hadley MD LAB BLOOD ORDERABLES Final Resu lt [facility] [address] [phone] * Thyroid Stimulating Hormone(TSH) (09/30/2025 3:06 PM EST) Thyroid Stimulating Hormone 2.19 0.35 - 4.94 m[U]/L 09/30/2025 4:20 PM EST [facility] ([id number]) Blood VENOUS BLOOD SPECIMEN / Unknown Venipuncture / Unknown 09/30/2025 3:06 PM EST 09/30/2025 3:21 PM EST Narrative [facility] ([id number]) - 09/30/2025 4:20 PM EST Biotin does not interfere with this testing methodology. us Jennifer Hadley MD LAB BLOOD ORDERABLES Final Resu lt [facility] ([id number]) [address] [place] [address] * CEA (09/30/2025 3:06 PM EST) [facility] Carcinoembryonic Antigen <1.8 0.0 - 5.0 ng/mL 10/01/2025 2:08 PM EST [facility] Blood VENOUS BLOOD SPECIMEN / Unknown Venipuncture / Unknown 09/30/2025 3:06 PM EST 09/30/2025 3:21 PM EST Narrative [facility] - 10/01/2025 2:08 PM EST Testing performed on the [employer]. Results obtained with different test methods or kits cannot be used interchangeably. Should not be interpreted as evidence for the presence or absence of malignancy. Jennifer Hadley MD [facility]S Fin al Result Performing Organization Address [facility]/ZIP Co de Phone Number [facility] [address] [facility] [address] [place] [address] * CT Abdomen & Pelvis With IV Contrast Without Oral Contrast (09/12/2025 12:05 AM EDT) [employer] RAD WORKSTATION ID [id number] CA POWERSCRIBE Anatomical Region Laterality Modality Abdomen Computed Tomogra phy 09/12/2025 7:14 AM EDT Narrative 09/12/2025 7:19 AM EDT REVIEWING YOUR TEST RESULTS IN [facility] IS NOT A SUBSTITUTE FOR DISCUSSING THOSE RESULTS WITH YOUR HEALTH CARE PROVIDER. PLEASE CONTACT YOUR PROVIDER [facility] TO DISCUSS ANY QUESTIONS OR CONCERNS YOU MAY HAVE REGARDING THESE TEST RESULTS. RADIOLOGY REPORT FACILITY: [facility] UNIT/AGE/GENDER: J.ED ER AGE:60 Y SEX:F PATIENT NAME/: NAILA PATEL Ana 1965 UNIT NUMBER: [id number] ACCESSION NUMBER: [id number] CT ABDOMEN AND PELVIS W IV CONTRAST [...] M.D. <PS><Electronically signed by: Neri Cevallos M.D.> 09/12/2025 0718 0714 0714 Procedure Note Neri Cevallos MD - 09/12/2025 REVIEWING YOUR TEST RESULTS IN [employer] IS NOT A SUBSTITUTE FORDISCUSSING THOSE RESULTS WITH YOUR HEALTH CARE PROVIDER. PLEASE CONTACT YOUR PROVIDER VIA [employer] TO DISCUSS ANY QUESTIONS ORCONCERNS YOU MAY HAVE REGARDING THESE TEST RESULTS. RADIOLOGY REPORT FACILITY: [facility] UNIT/AGE/GENDER: J.ED ER AGE:60 Y SEX:F PATIENT NAME/: NAILA PATEL C 1965 UNIT NUMBER: [id number] ACCESSION NUMBER: [id number] CT ABDOMEN AND PELVIS W IV CONTRAST [...] M.D. <PS><Electronically signed by: Neri Cevallos M.D.> 09/12/2025 0718 0714 [address] [facility] [facility] Final Res ult * Lipase (09/11/2025 10:26 PM EDT) Lipase 21 0 - 59 U/L 09/11/2025 11:02 PM EDT [facility] ([id number]) Blood VENOUS BLOOD SPECIMEN / Unknown Venipuncture / Unknown 09/11/2025 10:26 PM EDT 09/11/2025 10:32 PM EDT us Alex Malik MD LAB BLOOD ORDERABLES Fin al Result [facility] ([id number]) [address] [place] [address] * (ABNORMAL) Comprehensive Metabolic Panel(CMP) (09/11/2025 10:26 PM EDT) Sodium 142 136 - 145 mmol/L 09/11/2025 11:02 PM EDT [facility] ([id number]) Comment:Excess protein and/o r lipids can falsely decrease sodium levels (pseudo hyponatremia). Potassium 4.0 3.5 - 5.1 mmol/L 09/11/2025 11:02 PM T [facility] ([id number]) Comment:Falsely elevated pot assium can occur in patients with high WBC or platelet counts. Chloride 105 98 - 107 mmol/L 09/11/2025 11:02 PM T [facility] ([id number]) Comment:Falsely elevated chl oride levels can be seen in patients taking bromide containing medications. Carbon Dioxide 26 22 - 29 mmol/L 09/11/2025 11:02 PM T [facility] ([id number]) Anion Gap 11 5 - 13 mmol/L 09/11/2025 11:02 PM [facility] ([id number]) Comment:Calculation: Na - (C l + CO2) Glucose, Random 86 71 - 99 mg/dL 09/11/2025 11:02 PM EDT [facility] ([id number]) Blood Urea Nitrogen (BUN) 12 10 - 20 mg/dL 09/11/2025 11:02 PM [facility] ([id number]) Creatinine, Blood 0.80 0.55 - 1.02 mg/dL 09/11/2025 11:02 PM [facility] ([id number]) BUN/Creatinine Ratio 15.0 RATIO 09/11/2025 11:02 PM [facility] ([id number]) Estimated GFR (Cr) 85 >60 mL/min/1.7 3m2 09/11/2025 11:02 PM EDT [facility] ([facility]) Comment:eGFR calculated base d on IDMS traceable, enzymatic creatinine method using the CKD-EPI 2020 equation. Total Protein 6.9 6.4 - 8.2 g/dL 09/11/2025 11:02 PM EDT [facility] ([facility]) Albumin 4.1 3.5 - 5.2 g/dL 09/11/2025 11:02 PM EDT [facility] ([facility]) Globulin 2.8 1.5 - 4.5 g/dL 09/11/2025 11:02 PM EDT [facility] ([facility]) Albumin/Globulin Ratio 1.5 1.1 - 2.5 RATIO 09/11/2025 11:02 PM EDT [facility] ([facility]) Calcium 8.9 8.4 - 10.2 mg/dL 09/11/2025 11:02 PM EDT [facility] ([facility]) Total Bilirubin 0.2(L) 0.3 - 1.2 mg/dL 09/11/2025 11:02 PM EDT [facility] ([facility]) AST/SGOT 17 5 - 34 U/L 09/11/2025 11:02 PM EDT [facility] ([facility]) ALT/SGPT 10 0 - 55 U/L 09/11/2025 11:02 PM EDT [facility] ([facility]) Alkaline Phosphatase 64 40 - 150 U/L 09/11/2025 11:02 PM EDT [facility] ([facility]) Blood VENOUS BLOOD SPECIMEN / Unknown Venipuncture / Unknown 09/11/2025 10:26 PM EDT 09/11/2025 10:32 PM EDT us Alex Malik MD LAB BLOOD ORDERABLES Fin al Result [facility] ([facility]) [address] [place] [address] * Culture,Urine (09/08/2025 1:43 PM EDT) Only the most recent of2 resultswithin the time period is included. Culture No Growth Final. LAB DEVICE: COPAN WASP 09/09/2025 4:21 PM EDT [facility] Urine MID-STREAM URINE SPECIMEN / Unknown Non-blood Collection / Unknown 09/08/2025 1:43 PM EDT 09/08/2025 4:21 PM EDT [facility] Jamie Fiore STERILE PRODUCTS PROCESSOR MICROBIOLOGY - GENERAL ORDE RABLES Final Result [facility] [address] [facility] [address] [place] [address] * (ABNORMAL) Urinalysis (09/08/2025 1:42 PM EDT) Color, Urine Light-Yellow 09/08/2025 9:15 PM EDT [facility] Clarity, Urine Clear 09/08/2025 9:15 PM EDT [facility] Specific [place], Urine 1.011 1.005 - 1.030 [arb'U] 09/08/2025 [...] 1:42 PM EDT 09/08/2025 4:24 PM EDT [facility] Jamie Fiore STERILE PRODUCTS PROCESSOR URINE ORDERABLES Final Resu lt [facility] [address] [facility] [address] [place] [address] * (ABNORMAL) POCT Urinalysis W/O Micro (09/08/2025 1:42 PM EDT) Only the most recent of2 resultswithin the time period is included. Color, UA Light Yellow [facility] [...] LAB Blood-POCT 50 Ze/uL(A) Negative [facility] 410 LAB QC Urine Strip Acceptable Acceptable [facility] LAB Lot Number Urine Strip [id number] [facility] LAB Exp Date Urine Strip 10/12/2025 [facility] LAB Comment Urine Strip [facility] LAB Urine MID-STREAM URINE SPECIMEN / Unknown 09/08/2025 1:42 PM EDT [facility] Jamie Fiore [employer] PROCESSOR POINT OF CARE TEST ORDERABL ES Final Result [facility] OB 410 LAB [address] [place] [address] * Mammogram Mann Screening Bilateral (09/17/2020 11:47 AM EST) Anatomical Region Laterality Modality Breast [facility] RAD Mammogra phy 09/17/2020 3:07 PM EST Narrative 09/17/2020 3:08 PM EST MAMMOGRAPHY REPORT FACILITY: UNIT/AGE/GENDER: OP AGE: 55 Y SEX: F PATIENT NAME/: NAILA PATEL C 1965 UNIT NUMBER: [id number] ACCESSION NUMBER: [id number] DATE OF EXAM: 09/17/2020 EXAMINATION(S): MAMMOGRAM MANN SCREENING BILATERAL FOR THE PATIENT: Your exam shows there is no evidence of breast cancer. CLINICAL HISTORY: Patient is a 55 year old female. The patient is seen for a screening examination. The patient has no family history of breast cancer. DIGITAL BILATERAL SCREENING MAMMOGRAM WITH TOMOSYNTHESIS The following views were performed: Bilateral craniocaudal; bilateral craniocaudal with tomosynthesis; bilateral mediolateral oblique; bilateral mediolateral oblique with tomosynthesis; and right craniocaudal exaggerated to axilla. Images were reviewed with digital R2 Computer-Aided Detection (CAD). There are scattered areas of fibroglandular density. There are no suspicious masses, significant calcifications, or other abnormalities seen. Tomosynthesis was utilized for this examination. IMPRESSION: There is no mammographic evidence of malignancy. Screening Mammogram in 1 year is recommended. BI-RADS Category 1: Negative The patient has been entered into an automated reminder system. <Electronically signed by STEVE FAUST M.D.> 09/17/2020 1507 Procedure Note Steve Faust MD - 09/17/2020 MAMMOGRAPHY REPORT FACILITY: UNIT/AGE/GENDER: OP AGE: 55 Y SEX: F PATIENT NAME/: NAILA PATEL C 1965 UNIT NUMBER: [id number] ACCESSION NUMBER: [id number] DATE OF EXAM: 09/17/2020 EXAMINATION(S): MAMMOGRAM MANN SCREENING BILATERAL FOR THE PATIENT: Your exam shows there is no evidence of breast cancer. CLINICAL HISTORY: Patient is a 55 year old female. The patient is seen for a screeningexamination. The patient has no family history of breast cancer. DIGITAL BILATERAL SCREENING MAMMOGRAM WITH TOMOSYNTHESIS The following views were performed: Bilateral craniocaudal; bilateralcraniocaudal with tomosynthesis; bilateral mediolateral oblique; bilateralmediolateral oblique with tomosynthesis; and right craniocaudalexaggerated to axilla. Images were reviewed with digital R2 Computer-Aided Detection (CAD). There are scattered areas of fibroglandular density. There are no suspicious masses, significant calcifications, or otherabnormalities seen. Tomosynthesis was utilized for this examination. IMPRESSION: There is no mammographic evidence of malignancy. Screening Mammogram in 1 year is recommended. BI-RADS Category 1: Negative The patient has been entered into an automated reminder system. <Electronically signed by STEVE FAUST M.D.> 09/17/2020 1507 Zeferino Jason APRN IMG MAMMOGRAPHY ORDERABLES Fi nal Result from Last 3 Months or Most Recently Relevant to Health Maintenance [facility] Advance Directives * Full Code (Latest Code Status on File) Date Activated Date Inactivated Comments 07/12/2018 3:35 AM 07/15/2018 1:30 PM * Full Code Date Activated Date Inactivated Comments 04/16/2018 8:20 AM 04/23/2018 2:03 PM Care Teams Coat Operator Relationship Specialty Start Date End Date Hallie Fiore APRN [address] [address] PCP - General Nurse Practitioner Family 09/08/25
--- OUTSIDE RECORDS SUMMARY | 2025-11-04 12:46 | XMS_ITS | Encounter Summary ---
Author Organization [facility] Address [address] [place] [id number] Care Team Providers Care Lumber Tallier Name Role Phone Hallie Fiore APRN Primary Care Provider [phone] Reason for Referral * Consultation (Urgent (1-2 days)) - Authorized Specialty Diagnoses / Procedures Referred By Taisha vásquez Referred To Contact Urology Diagnoses Hematuria, unspecified type Hallie Fiore APRN [address] [address] Phone: tel: fax: Referral ID Status Reason Start Date Expiration Date Visits Requested Visits Authorized [id number] Authorized Service Not Available At [facility] 10/10/2026 1 1 Encounter Details Date Type Department Care Team (Late st Contact Info) Description 09/08/2025 Results Follow-Up [facility] [address] [address] Hallie Fiore APRN [address] [address] POCT Urinalysis W/O Micro, Urinalysis, Culture,Urine Social History Tobacco Use Types Packs/Day [...] Visit [facility] [address] [address] Alyssa Bullard MD [address] [address] 01/05/2026 2:45 PM EST Lab Visit [facility] [address] [place] [id number] 01/05/2026 3:00 PM EST Office Visit [facility] [address] [place] [address] Jennifer Hadley MD 4[address] [facility] 2[address] [place] [address] 09/11/2026 1:30 PM EDT Office Visit [facility] [address] [facility] [address] [place] [address] Hallie Fiore APRN [address]80 [facility] [address] [place] [address] Scheduled Referrals Name Type Priority Associated Diagnoses Orde r Schedule Ambulatory Referral to Adult Urology Outpatient Referral Routine Hematuria, unspecified type Ordered: 09/09/2025 documented as of this encounter Visit Diagnoses Diagnosis Hematuria, unspecified type- Primary documented in this encounter Care Teams Lumber Tallier Relationship Specialty Start Date End Date Hallie Fiore APRN [address] [address] PCP - General Nurse Practitioner Family 09/08/25 documented as of this encounter
--- NOTE | 2025-11-04 13:00 | US_ITS ---
PROCEDURE: US TRANSVAGINAL CLINICAL INDICATION: Pelvic pain COMPARISON: No exams were available for comparison FINDINGS: Transvaginal sonographic images of the pelvis were obtained. UTERUS: 4.2cm x 3x 2.6 cm anteverted and anteflexed with a combined endometrial thickness of 1.1 mm. There is a trace amount of fluid within the endometrium near the fundus. LEFT OVARY: 0.8 cmx1.5cmx1.6cm with a volume of 1ml. RIGHT OVARY: 1.0cmx 1.1cmx1.6 cm with a volume of 1ml. Both ovaries are seen and appear small and atrophic. Doppler flow to both ovaries are seen. There is no fluid in the cul-de-sac. IMPRESSION: 1. Anteverted and anteflexed small uterus with an endometrium measuring 1.1 mm. There is a trace amount of fluid in the endometrial cavity near the fundus. 2. Both ovaries are small and atrophic. There are varicosities in the left adnexa. 3. No fluid in the cul-de-sac. Dictated by: nAg Bauman MD 11/05/2025 05:44 Ang Bauman MD in OV 11/05/2025 05:44
== END 2025-11-04 23:59 | disposition home or self-care (01) ==
LOC: RAD 12:44
PROVIDERS: Visit Provider Obstetrics & Gynecology
DX: N85.4 Malposition of uterus (principal); N83.312 Acquired atrophy of left ovary; N83.311 Acquired atrophy of right ovary; I86.2 Pelvic varices
CPT/HCPCS: 76830